=== PATIENT | male | born 1980 | race Two or more races ===

== ENCOUNTER 2020-02-02 20:25 | Emergency (ER) | payer OTHER, SELFPAY ==
[2020-02-02 20:50] VITALS: BP 132/85; PULSE 67; RESP 16; TEMP 36.7; O2SAT 97; BMI 34.3
--- NOTE | 2020-02-02 21:06 | ED.ABDPAIN ---
HPI - Abdominal Pain General Chief Complaint: Abdominal Pain Stated Complaint: abdominal pain Time Seen by Provider: 02/02/20 21:06 Source: patient Mode of arrival: ambulatory Limitations: no limitations History of Present Illness MD elicited complaint: abdominal pain Onset (ago): week(s) (2) Pain Consistency: intermittent Location: epigastric, LUQ and RUQ Quality: fullness and burning Radiation: none Migration to: no migration Exacerbating factors: movement Relieving factors: nothing Treatments prior to arrival: antacids Related Data Previous Rx's Medication Instructions Recorded omeprazole 40 mg PO DAILY 14 Days #14 cap 02/03/20 ondansetron 4 mg PO Q8H PRN #20 tab 02/03/20 sucralfate [Carafate] 1 g PO TID 10 Days #30 tab 02/03/20 Allergies Allergy/AdvReac Type Severity Reaction Status Date / Time No Known Allergies Allergy Unverified 11/30/19 15:42 [No Known Allergies*] Review of Systems Review of Systems Constitutional : No Weight loss, No Fever, No Chills ENT/Mouth : No sore throat, No Rhinorrhea Eyes: No Swelling, No Redness Cardiovascular : No Chest Pain, No SOB, NoEdema Respiratory : No Cough, No Sputum, No Wheezing Gastrointestinal : Positive Nausea, no Vomiting, no Diarrhea, positive abdominal Pain, No Hematochezia, No Melena Genitourinary : No Dysuria, No Urinary Frequency, No Hematuria, No Urgency Musculoskeletal : No joint pain, No Myalgias, No Joint Swelling Skin : No Skin Lesions, No rash Neuro : No Weakness, No Numbness, No Dizziness, No Headache Psych : No Anxiety/Panic, No Depression Heme/Lymph: No Bruising, No Lymphadenopathy Endocrine : No Polyuria, No Polydipsia All other systems reviewed and are negative. Physical Exam Vital Signs: Vital Signs: Last Vital Signs Temp 97.7 F 02/02/20 22:53 Pulse 74 02/02/20 22:53 Resp 18 02/02/20 22:53 BP 121/80 02/02/20 22:53 Pulse Ox 99 02/02/20 22:53 Body Mass Index 34.3 Appearance: Alert. Oriented X3. No acute distress. Eyes: Pupils equal, round and reactive to light. ENT: Pharynx normal. Neck: Normal inspection. Neck supple. CVS: Normal heart rate and rhythm. Pulses normal. Respiratory: No respiratory distress. Breath sounds normal. Abdomen: Soft and mild epigastric pain neg Lockhart's sign Skin: Skin warm and dry. Normal skin color. Normal skin turgor. Extremities: No lower extremity edema. No calf ttp Neuro: Oriented X 3. No motor deficit. No sensory deficit. Course Course Course Narrative: no acute findings at this time, stable for DC, no urinary symptoms, UA negative MDM - Abdominal Pain MDM Narrative Medical decision making narrative: 39 yo male with no PMH comes in with c/o 2 weeks of worsening upper abdominal pain and burning on prilosec with no relief, at this time will need labs, CT scan for mass/duodenitis eval of GB and pancreas, GI cocktail and IV pepcid. Lab Data Result diagrams: 02/02/20 21:35 02/02/20 22:12 Labs: Lab Results 02/02/20 02/02/20 02/02/20 Range/Units 21:35 21:35 21:35 WBC 7.7 (4.8-10.8) X10*3/uL RBC 5.34 (4.60-5.80) X10*6/uL Hgb 16.1 (14.0-18.0) g/dl Hct 45.2 (42-52) % MCV 84.6 (80-98) fL MCH 30.1 (27.0-33.0) pg MCHC 35.6 (31.0-36.0) g/dl RDW 11.6 (11.0-16.0) % Plt Count 270 (160-400) X10*3/uL MPV 8.5 L (9.4-12.4) fL Immature Gran % (Auto) 0.5 H (0.0-0.4) % Neut % (Auto) 38.2 L (45-73) % Lymph % (Auto) 42.0 H (20-40) % [place] % (Auto) 14.8 H (2-11) % Eos % (Auto) 3.8 (0-4) % Baso % (Auto) 0.7 (0-2) % Lymph # (Auto) 3.2 (1.2-4.9) X10*3/uL [place] # (Auto) 1.1 (0.1-1.2) X10*3/uL Eos # (Auto) 0.3 (0.0-0.4) X10*3/uL Baso # (Auto) 0.1 (0.0-0.2) X10*3/uL Abs Immat Gran (auto) 0.04 H (0.00-0.03) X10*3/uL Absolute Neuts (auto) 2.9 (2.0-8.3) X10*3/uL Absolute Nucleated RBC 0.000 (0.0-0.012) X10*3/uL Nucleated RBC % (auto) 0.0 (0.0-0.2) /100WBC Hold Blue Top SEE NOTE Sodium Cancelled Potassium Cancelled Chloride Cancelled Carbon Dioxide Cancelled Anion Gap Cancelled BUN Cancelled Creatinine Cancelled Estim Creat Clear Calc Cancelled Estimated GFR Cancelled Random Glucose Cancelled Calcium Cancelled Magnesium Cancelled Total Bilirubin Cancelled Direct Bilirubin Cancelled AST Cancelled ALT Cancelled Alkaline Phosphatase Cancelled Total Protein Cancelled Albumin Cancelled Lipase Cancelled Urine Color Urine Appearance Urine pH (5.0-8.0) Ur Specific [place] (1.005-1.025) Urine Protein (NEG-TRACE) MG/DL Urine Glucose (UA) (NEG) MG/DL Urine Ketones (NEG) MG/DL Urine Blood (NEG) Urine Nitrite (NEG) Ur Leukocyte Esterase (NEG) Urine RBC (0) /HPF Urine WBC (0-4) /HPF Ur Squamous Epith Cells /LPF Urine Bacteria /LPF 02/02/20 02/03/20 Range/Units 22:12 00:33 WBC (4.8-10.8) X10*3/uL RBC (4.60-5.80) X10*6/uL Hgb (14.0-18.0) g/dl Hct (42-52) % MCV (80-98) fL MCH (27.0-33.0) pg MCHC (31.0-36.0) g/dl RDW (11.0-16.0) % Plt Count (160-400) X10*3/uL MPV (9.4-12.4) fL Immature Gran % (Auto) (0.0-0.4) % Neut % (Auto) (45-73) % Lymph % (Auto) (20-40) % [place] % (Auto) (2-11) % Eos % (Auto) (0-4) % Baso % (Auto) (0-2) % Lymph # (Auto) (1.2-4.9) X10*3/uL [place] # (Auto) (0.1-1.2) X10*3/uL Eos # (Auto) (0.0-0.4) X10*3/uL Baso # (Auto) (0.0-0.2) X10*3/uL Abs Immat Gran (auto) (0.00-0.03) X10*3/uL Absolute Neuts (auto) (2.0-8.3) X10*3/uL Absolute Nucleated RBC (0.0-0.012) X10*3/uL Nucleated RBC % (auto) (0.0-0.2) /100WBC Hold Blue Top Sodium 138 Potassium 3.8 Chloride 105 Carbon Dioxide 25 Anion Gap 12 BUN 14 Creatinine 1.02 Estim Creat Clear Calc 96.7 Estimated GFR > 60 Random Glucose 94 Calcium 8.5 Magnesium 2.0 Total Bilirubin 0.6 Direct Bilirubin 0.2 AST 23 ALT 53 H Alkaline Phosphatase 96 Total Protein 6.9 Albumin 4.3 Lipase 44 Urine Color YELLOW Urine Appearance CLEAR Urine pH 7.5 (5.0-8.0) Ur Specific [place] 1.010 (1.005-1.025) Urine Protein NEG (NEG-TRACE) MG/DL Urine Glucose (UA) NEG (NEG) MG/DL Urine Ketones NEG (NEG) MG/DL Urine Blood TRACE (NEG) Urine Nitrite NEG (NEG) Ur Leukocyte Esterase NEG (NEG) Urine RBC 1-4 (0) /HPF Urine WBC 1-4 (0-4) /HPF Ur Squamous Epith Cells TRACE /LPF Urine Bacteria TRACE /LPF Discharge Plan Discharge Clinical Impression: Gastritis Qualifiers: Gastritis type: unspecified gastritis Chronicity: acute Gastritis bleeding: without bleeding Qualified Code(s): K29.00 - Acute gastritis without bleeding Patient Disposition: Home, Self-Care Instructions: Gastritis (ED) Additional Instructions: return to ED for any worsening symptoms or concerns Prescriptions: New ondansetron 4 mg tablet,disintegrating 4 mg PO Q8H PRN (Reason: nausea and vomiting) Qty: 20 RF: 0 omeprazole 40 mg capsule,delayed release(DR/EC) 40 mg PO DAILY 14 Days Qty: 14 RF: 0 sucralfate [Carafate] 1 gram tablet 1 g PO TID 10 Days Qty: 30 RF: 0 Referrals: Carlos Polk MD [Primary Care Provider] - 3 days (if not better) Stand Alone Forms: Work/School Release [facility] Past Medical History Attestation statement: The following information was validated with the patient. Medical History No known health problems Social History Social History (Updated 02/02/20 @ 21:22 by Catina Hylton DO) Alcohol intake: never Smoking Status: Never smoker Use of substances other than those prescribed or required for medical reasons: No Advance Directives: No Advance Directives Information Provided: Yes
--- NOTE | 2020-02-02 21:09 | CT_ITS ---
EXAMINATION: CT ABDOMEN AND PELVIS WITH CONTRAST CLINICAL INFORMATION: Epigastric pain COMPARISON: 06/26/2006 TECHNIQUE: Multidetector volumetric images were obtained from the superior aspect of the liver through the pubic symphysis following administration 85 mL of Omnipaque 350 intravenous contrast. Sagittal and coronal reformatted images were obtained on the technologist's workstation. Oral contrast: No This CT examination was performed using dose optimization techniques as appropriate, variously including the following: *Automated exposure control *Adjustment of mA and/or kV according to patient size (this includes techniques or standardized protocols for targeted exams where dose is matched to indication/reason for exam; i.e. extremities or head) *Use of iterative reconstruction technique DLP: 662 mGy-cm FINDINGS: LUNG BASES: 4 mm nodule at right lung base. LIVER, GALLBLADDER, AND BILIARY TREE: The liver is normal in size, shape, and attenuation. No focal hepatic lesion or biliary ductal dilatation is present. The gallbladder is unremarkable with no evidence of radiopaque gallstones, gallbladder wall thickening, or obvious pericholecystic inflammatory changes. PANCREAS: Unremarkable. SPLEEN: Unremarkable. ADRENAL GLANDS: Unremarkable. KIDNEYS AND URETERS: Nonobstructing small bilateral renal calculi BLADDER: Mildly thick-walled bladder GASTROINTESTINAL TRACT: The small and large bowel are unremarkable. The appendix is unremarkable. ABDOMINAL WALL: No significant hernia is appreciated. LYMPH NODES: Normal. VASCULAR: Unremarkable. PELVIC VISCERA: Unremarkable. OSSEOUS STRUCTURES: Unremarkable. CT/CT abdomen pelvis w con IMPRESSION: The bowel pattern is nonobstructing. No suspicious fluid collection. Mildly thick-walled bladder may be hypertrophy. Cystitis cannot be excluded. Nonobstructing renal calculi noted
[2020-02-02] MEDS: Magnesium Hydrox/Alum Hydrox 30 ML ORAL.SUSP PO (21:36)
[2020-02-02] MEDS: Lidocaine HCl Viscous 2 % 15 ML SOLUTION MUCOUS MEM (21:36)
[2020-02-02] MEDS: 0.9 % Sodium Chloride 1,000 ML 999 ML IVCONT (21:36)
[2020-02-02] MEDS: Famotidine/PF 20 MG/2 ML VIAL IVPUSH (21:36)
[2020-02-02 21:41] LABS: MANUAL DIFF FLAG NO
[2020-02-02 21:43] LABS: Basophils Absolute Auto 0.1 X10*3/uL (0.0-0.2); Basophils Percent Auto 0.7 % (0-2); Eosinophils Absolute Auto 0.3 X10*3/uL (0.0-0.4); Eosinophils Percent Auto 3.8 % (0-4); Hematocrit 45.2 % (42-52); Hemoglobin 16.1 g/dl (14.0-18.0); Imm Gran Abs Auto 0.04 X10*3/uL (0.00-0.03); Imm Gran Pct Auto 0.5 % (0.0-0.4); Lymphocytes Absolute Auto 3.2 X10*3/uL (1.2-4.9); Mean Corpuscular HGB Conc 35.6 g/dl (31.0-36.0); Mean Corpuscular Hemoglobin 30.1 pg (27.0-33.0); Mean Corpuscular Volume 84.6 fL (80-98); Mean Platelet Volume 8.5 fL (9.4-12.4); Monocytes Absolute Auto 1.1 X10*3/uL (0.1-1.2); Monocytes Percent Auto 14.8 % (2-11); Neutrophils Absolute Auto 2.9 X10*3/uL (2.0-8.3); Neutrophils Percent Auto 38.2 % (45-73); Platelet Count 270 X10*3/uL (160-400); Red Blood Count 5.34 X10*6/uL (4.60-5.80); Red Cell Distribution Width 11.6 % (11.0-16.0); White Blood Count 7.7 X10*3/uL (4.8-10.8)
[2020-02-02 22:38] LABS: Alanine Aminotransferase 53 U/L (0-40); Albumin Level 4.3 g/dL (3.5-5.0); Alkaline Phosphatase 96 U/L (39-117); Anion Gap 12 (12-20); Aspartate Amino Transferase 23 U/L (5-37); Bilirubin Direct 0.2 mg/dL (0.0-0.5); Bilirubin Total 0.6 mg/dL (0.0-1.0); Blood Urea Nitrogen 14 mg/dL (9-16); Calcium 8.5 mg/dL (8.4-10.2); Carbon Dioxide 25 mmol/L (22-29); Chloride 105 mmol/L (96-108); Creatinine Clr Calc Pharmacy 96.7; Estimated Glomerular Filt Rate > 60; Glucose Random 94 mg/dL (60-115); Lipase 44 U/L (8-78); Potassium 3.8 mmol/l (3.3-5.1); Sodium 138 mmol/L (135-145); Total Protein 6.9 g/dL (6.5-8.0)
[2020-02-02 22:53] VITALS: BP 121/80; PULSE 74; RESP 18; TEMP 36.5; O2SAT 99
[2020-02-02] MEDS: iohexoL 350 MG/ML 100 ML INFUS..BTL 85 ML IV (23:56)
[2020-02-03] VITALS: BP 114/70; PULSE 70; RESP 18; TEMP 36.7; O2SAT 99
[2020-02-03 00:38] LABS: Glucose Urine UA NEG (NEG); Leukocyte Esterase Urine NEG (NEG); Nitrite Urine NEG (NEG); PH 7.5 (5.0-8.0); Urine Blood TRACE (NEG); Urine Ketones NEG (NEG); Urine Protein NEG (NEG-TRACE)
[2020-02-03 00:40] LABS: Appearance Urine CLEAR; Color Urine YELLOW
[2020-02-03 00:50] LABS: Bacteria Urine TRACE /LPF; Squamous Epithelial Cell Urine TRACE /LPF
== END 2020-02-03 01:35 | disposition home or self-care (01) ==
PROVIDERS: Emergency Provider Emergency Medicine; PCP Internal Medicine
DX: K29.00 Acute gastritis without bleeding (principal); R10.12 Left upper quadrant pain; R10.11 Right upper quadrant pain; Z79.899 Other long term (current) drug therapy
CPT/HCPCS: 36415; 74177; 80048; 80076; 81001; 83690; 83735; 85025; 96361; 96374; 99284; Q9967

== ENCOUNTER → 2020-02-20 09:09 | Outpatient (BNVA) | payer OTHER, SELFPAY | PROVIDERS: PCP Internal Medicine; Referring Provider Internal Medicine; Visit Provider Internal Medicine Gastroenterology | DX: Z76.89 Persons encountering health services in other specified circumstances (principal) ==

== ENCOUNTER 2020-07-27 10:37 | Outpatient (REF) | payer OTHER, SELFPAY ==
[2020-07-27 11:07] LABS: MANUAL DIFF FLAG NO
[2020-07-27 11:17] LABS: Basophils Percent Auto 0.4 % (0-2); Eosinophils Absolute Auto 0.3 X10*3/uL (0.0-0.4); Eosinophils Percent Auto 3.4 % (0-4); Hematocrit 45.7 % (42-52); Hemoglobin 15.8 g/dl (14.0-18.0); Imm Gran Abs Auto 0.09 X10*3/uL (0.00-0.03); Imm Gran Pct Auto 1.1 % (0.0-0.4); Lymphocytes Percent Auto 36.1 % (20-40); Mean Corpuscular HGB Conc 34.6 g/dl (31.0-36.0); Mean Corpuscular Hemoglobin 29.8 pg (27.0-33.0); Mean Corpuscular Volume 86.1 fL (80-98); Mean Platelet Volume 8.9 fL (9.4-12.4); Monocytes Absolute Auto 0.8 X10*3/uL (0.1-1.2); Monocytes Percent Auto 10.2 % (2-11); Neutrophils Percent Auto 48.8 % (45-73); Platelet Count 271 X10*3/uL (160-400); Red Blood Count 5.31 X10*6/uL (4.60-5.80); Red Cell Distribution Width 11.6 % (11.0-16.0); White Blood Count 8.2 X10*3/uL (4.8-10.8)
[2020-07-27 11:32] LABS: Alanine Aminotransferase 41 U/L (0-40); Albumin Level 4.4 g/dL (3.5-5.0); Alkaline Phosphatase 94 U/L (39-117); Anion Gap 12 (12-20); Aspartate Amino Transferase 21 U/L (5-37); Bilirubin Total 0.8 mg/dL (0.0-1.0); Blood Urea Nitrogen 14 mg/dL (9-16); Calcium 9.2 mg/dL (8.4-10.2); Carbon Dioxide 26 mmol/L (22-29); Chloride 106 mmol/L (96-108); Cholesterol 145 mg/dL; Estimated Glomerular Filt Rate > 60; Glucose Fasting 77 mg/dL (60-99); HDL Cholesterol 40 mg/dL; LDL Cholesterol Calculated 73 mg/dl; Potassium 4.7 mmol/L (3.3-5.1); Sodium 139 mmol/L (135-145); Triglycerides 164 mg/dL
[2020-07-27 11:39] LABS: Glucose Urine UA NEG (NEG); Leukocyte Esterase Urine NEG (NEG); Nitrite Urine NEG (NEG); PH 5.5 (5.0-8.0); Specific Gravity - Urine 1.025 (1.005-1.025); Urine Blood 1+ (NEG); Urine Ketones NEG (NEG); Urine Protein NEG (NEG-TRACE)
[2020-07-27 11:40] LABS: Appearance Urine CLEAR; Color Urine YELLOW
[2020-07-27 11:53] LABS: Prostate Specific Antigen Scr 0.41 ng/mL (<0.05-4.0); TSH reflex Free T4 1.17 uIU/mL (0.32-4.0)
[2020-07-27 11:53] LABS: RBC Urine 0-2 /HPF (0); WBC Urine 0-2 /HPF (0-4)
== END 2020-07-27 10:38 | disposition home or self-care (01) ==
LOC: HO.LAB 10:37
PROVIDERS: PCP Internal Medicine; Visit Provider Internal Medicine
DX: Z00.00 Encounter for general adult medical examination without abnormal findings (principal); I10 Essential (primary) hypertension; K21.9 Gastro-esophageal reflux disease without esophagitis; E66.9 Obesity, unspecified; E78.00 Pure hypercholesterolemia, unspecified; Z12.5 Encounter for screening for malignant neoplasm of prostate
CPT/HCPCS: 36415; 80053; 80061; 81001; 84153; 84443; 85025

== ENCOUNTER 2021-09-12 08:21 | Outpatient (REF) | payer OTHER, SELFPAY ==
[2021-09-12 09:31] LABS: Appearance Urine HAZY; Color Urine YELLOW; Glucose Urine UA NEG (NEG); Leukocyte Esterase Urine 3+ (NEG); Nitrite Urine NEG (NEG); Specific Gravity - Urine 1.025 (1.005-1.025); UACC Culture Trigger YES; Urine Blood 3+ (NEG); Urine Ketones NEG (NEG); Urine Protein NEG (NEG-TRACE)
[2021-09-12 09:46] LABS: Bacteria Urine 3+ /LPF
[2021-09-12 09:47] LABS: WBC Urine 30-49 /HPF (0-4)
[2021-09-12 09:48] LABS: RBC Urine 0-2 /HPF (0)
[2021-09-12 09:51] LABS: Oval Fat Bodies Urine NOTED; Squamous Epithelial Cell Urine TRACE /LPF
== END 2021-09-12 08:22 | disposition home or self-care (01) ==
LOC: HO.LAB 08:21
PROVIDERS: PCP Internal Medicine; Visit Provider Internal Medicine
DX: R30.0 Dysuria (principal)
CPT/HCPCS: 81001; 87086; 87088; 87186

== ENCOUNTER 2021-10-07 07:16 | Outpatient (REF) | payer OTHER, SELFPAY ==
--- NOTE | ~2021-10-07 | CT_ITS ---
EXAMINATION: CT ABDOMEN AND PELVIS WITHOUT CONTRAST CLINICAL INFORMATION: Urinary calculus. COMPARISON: 02/02/2020. TECHNIQUE: Multidetector volumetric imaging was performed from the superior aspect of the liver through the pubic symphysis. Sagittal and coronal reformatted images were obtained on the technologist's workstation. This CT examination was performed using dose optimization techniques as appropriate, variously including the following: *Automated exposure control *Adjustment of mA and/or kV according to patient size (this includes techniques or standardized protocols for targeted exams where dose is matched to indication/reason for exam; i.e. extremities or head) *Use of iterative reconstruction technique DLP: 513 mGy-cm FINDINGS: LUNG BASES: The visualized lung bases are unremarkable. No pleural or pericardial effusion. LIVER, GALLBLADDER, AND BILIARY TREE: The liver is normal in size, shape, and attenuation. No focal hepatic lesion or biliary ductal dilatation is present. There is some mild fatty sparing seen about the region of the gallbladder. The gallbladder is unremarkable with no evidence of radiopaque gallstones, gallbladder wall thickening, or obvious pericholecystic inflammatory changes. PANCREAS: Unremarkable. SPLEEN: Unremarkable. ADRENAL GLANDS: Unremarkable. KIDNEYS AND URETERS: RIGHT KIDNEY: No hydronephrosis is seen. No abnormal masses are appreciated. No perinephric fat stranding is seen. There is a 2 mm nonobstructing calculus in the region of the mid to upper pole. There is a 7 mm calculus within the lower pole which is nonobstructive and lies approximately 9 cm from the posterior axillary line with Hounsfield unit measurements of greater than 500. Within the lower pole there are 2 adjacent 2 mm calculi which are nonobstructive. Right ureter appears unremarkable. LEFT KIDNEY: No hydronephrosis or suspicious mass is appreciated. There is a 3 mm mid to upper pole nonobstructing calculus present. There is a 4 mm nonobstructing calculus seen about the lower pole. There is a 2 mm nonobstructing midpole calculus. The left ureter appears unremarkable. BLADDER: Decompressed. GASTROINTESTINAL TRACT: No dilated loops of large or small bowel are evident. No free air or free fluid is seen. No pericolonic inflammatory change. The appendix appears unremarkable. ABDOMINAL WALL: No significant hernia is appreciated. LYMPH NODES: There are enlarged inguinal lymph nodes right greater than left. No intra-abdominal lymphadenopathy is appreciated. VASCULAR: Unremarkable. PELVIC VISCERA: Unremarkable. OSSEOUS STRUCTURES: Unremarkable. CT/CT abdomen pelvis wo con IMPRESSION: Bilateral nephrolithiasis without evidence of obstructive uropathy. Fleischner guidelines were followed.
== END 2021-10-07 07:17 | disposition home or self-care (01) ==
LOC: HO.CT 07:16
PROVIDERS: PCP Internal Medicine; Visit Provider Internal Medicine
DX: N20.9 Urinary calculus, unspecified (principal); M54.50 Low back pain, unspecified
CPT/HCPCS: 74176

== ENCOUNTER 2022-03-27 08:04 | Outpatient (REF) | payer OTHER, SELFPAY ==
[2022-03-27 08:15] LABS: MANUAL DIFF FLAG NO
[2022-03-27 08:36] LABS: Basophils Absolute Auto 0.1 X10*3/uL (0.0-0.2); Basophils Percent Auto 0.6 % (0-2); Eosinophils Absolute Auto 0.4 X10*3/uL (0.0-0.4); Eosinophils Percent Auto 4.8 % (0-4); Hematocrit 45.9 % (42.0-52.0); Hemoglobin 16.3 g/dl (14.0-18.0); Imm Gran Abs Auto 0.13 X10*3/uL (0.00-0.03); Imm Gran Pct Auto 1.7 % (0.0-0.4); Lymphocytes Absolute Auto 2.7 X10*3/uL (1.2-4.9); Lymphocytes Percent Auto 34.5 % (20-40); Mean Corpuscular HGB Conc 35.5 g/dl (31.0-36.0); Mean Corpuscular Volume 84.5 fL (80.0-98.0); Mean Platelet Volume 8.6 fL (9.4-12.4); Monocytes Absolute Auto 1.1 X10*3/uL (0.1-1.2); Monocytes Percent Auto 14.6 % (2-11); Neutrophils Absolute Auto 3.4 x10*3/uL (2.0-8.3); Neutrophils Percent Auto 43.8 % (45-73); Platelet Count 254 X10*3/uL (160-400); Red Blood Count 5.43 X10*6/uL (4.60-5.80); Red Cell Distribution Width 11.5 % (11.0-16.0); White Blood Count 7.7 X10*3/uL (4.8-10.8)
[2022-03-27 08:38] LABS: Appearance Urine Clear; Color Urine Yellow; Glucose Urine UA Negative (Negative); Leukocyte Esterase Urine Negative (Negative); Nitrite Urine Negative (Negative); PH 5.5 (5.0-9.0); Specific Gravity - Urine 1.025 (1.005-1.025); Urine Blood Negative (Negative); Urine Ketones Negative (Negative); Urine Protein Negative (Neg-Trace)
[2022-03-27 09:11] LABS: Alanine Aminotransferase 76 U/L (0-40); Albumin Level 4.3 g/dL (3.5-5.0); Alkaline Phosphatase 86 U/L (39-117); Anion Gap 13 (12-20); Aspartate Amino Transferase 32 U/L (5-37); Bilirubin Total 0.6 mg/dL (0.0-1.0); Blood Urea Nitrogen 18 mg/dL (9-16); C Reactive Protein 0.18 mg/dL (< or = 0.50); Calcium 9.2 mg/dL (8.4-10.2); Carbon Dioxide 26 mmol/L (22-29); Chloride 105 mmol/L (96-108); Cholesterol 166 mg/dL; Estimated Glomerular Filt Rate > 60; Glucose Fasting 91 mg/dL (60-99); HDL Cholesterol 38 mg/dL; LDL Cholesterol Calculated 91 mg/dl; Potassium 4.7 mmol/L (3.3-5.1); Sodium 139 mmol/L (135-145); Triglycerides 186 mg/dL
[2022-03-27 09:17] LABS: Erythrocyte Sedimentation Rate 2 MM/HR (0-15)
[2022-03-27 09:29] LABS: TSH reflex Free T4 1.48 uIU/mL (0.32-4.0); Vitamin D 25-OH Total 13.6 ng/mL (>30)
== END 2022-03-27 08:05 | disposition home or self-care (01) ==
LOC: HO.LAB 08:04
PROVIDERS: PCP Internal Medicine; Visit Provider Internal Medicine
DX: Z00.00 Encounter for general adult medical examination without abnormal findings (principal); R10.9 Unspecified abdominal pain; M79.7 Fibromyalgia; E78.00 Pure hypercholesterolemia, unspecified; E55.9 Vitamin D deficiency, unspecified; R30.0 Dysuria
CPT/HCPCS: 36415; 80053; 80061; 81003; 82306; 84443; 85025; 85652; 86140

== ENCOUNTER 2022-09-11 08:16 | Outpatient (REF) | payer OTHER, SELFPAY ==
--- NOTE | ~2022-09-11 | US_ITS ---
EXAMINATION: US ABDOMEN COMPLETE CLINICAL INFORMATION: Other specified abnormal findings of blood chemistry. COMPARISON: CT abdomen and pelvis 10/07/2021. TECHNIQUE: Real-time imaging of the abdominal viscera. FINDINGS: PANCREAS: Normal. ABDOMINAL AORTA: The proximal, mid, and distal segments are normal in caliber. INFERIOR VENA CAVA: Visualized portions are normal. LIVER: The liver is normal in size. The liver contour is normal. Increased hepatic echogenicity which can be seen in the setting of hepatic steatosis or underlying liver disease. No focal hepatic lesion. There is no intrahepatic biliary duct dilatation seen. GALLBLADDER: Normal. The gallbladder is physiologically distended without evidence of stones, sludge, polyps, wall thickening or pericholecystic fluid. COMMON BILE DUCT: Obscured by bowel gas. RIGHT KIDNEY: A 1 cm nonobstructing lower pole renal stone. No hydronephrosis or focal parenchymal lesions. The kidney measures 10.7 cm in maximum dimension. LEFT KIDNEY: 4 mm nonobstructing lower pole renal stone. No hydronephrosis or focal parenchymal lesions. The kidney measures 11.6 cm in maximum dimension. SPLEEN: Normal. The spleen measures 11.1 cm in maximum dimension. FREE FLUID: None. US/US abdomen complete IMPRESSION: 1. Bilateral nonobstructing renal stones measuring up to 1 cm on the right and 4 mm on the left. 2. Increased hepatic echogenicity which can be seen in the setting of hepatic steatosis or underlying liver disease. 3. Common bile duct was obscured by bowel gas.
== END 2022-09-11 08:17 | disposition home or self-care (01) ==
LOC: HO.US 08:16
PROVIDERS: PCP Internal Medicine; Visit Provider Internal Medicine
DX: R10.9 Unspecified abdominal pain (principal); R79.89 Other specified abnormal findings of blood chemistry
CPT/HCPCS: 76700

== ENCOUNTER 2023-03-09 15:55 | Outpatient (AMB) | payer OTHER, SELFPAY ==
--- NOTE | 2023-03-09 15:58 | A.OFFPC_ITS ---
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 Accompanied by: Self / Same As Patient Allergies No Known Allergies [No Known Allergies*] Allergy (Verified 12/29/23 13:47) Medication List - Last Reconciled 03/09/23 by Carlos Polk MD cholecalciferol (vitamin D3) 50 mcg PO DAILY 90 days famotidine (Pepcid) 40 mg PO BEDTIME magnesium oxide (Hill) 500 mg PO DAILY omeprazole 40 mg PO DAILY ondansetron 4 mg PO Q8H PRN sennosides (senna) Take 1 to 2 tablets orally at bedtime PRN; 30 days sucralfate (Carafate) 1 g PO TID 10 days Tobacco use date assessed: 03/09/23 Dental Screening Dental Screen Date: 03/09/23 Did you have a dental visit in the last 12 months?: No Did you have a dental problem in the last 6 months where you did not have access to dental care?: No Was dental information given to patient?: No HPI Annual Exam HPI Details Patient comes in today for his annual physical examination States that he has been experiencing a recurrent pain over the top of his right foot since yesterday Relates that the top of his right foot hurts but only when he moves his foot (either flexing or extending) and also when he tries to put some weight bearing on his foot to walk but states that the pain does not occur when his foot is stationary and when he is sitting down Reports that he has not noticed any swelling or external lesion on his foot and does not recall any recent injury or trauma to his foot States that he feels okay otherwise He denies any headaches or dizziness Denies any chest pains, no SOB No nausea/vomiting, no abdominal pain No change in bowel habits noted He denies any acute urinary symptoms He was not able to get his previously ordered follow up labs done yet He had a colonoscopy and EGD done back on 06/12/[address] Lozano for early satiety and rectal bleeding - tests showed (+) mild esophagitis and mild gastric erythema; colonoscopy was essentially normal except for small internal hemorrhoids He was advised repeat colonoscopy in 10 years unless indicated otherwise [facility] Medical History Vitamin D deficiency Hypertriglyceridemia Migraine Constipation Obesity (BMI 30-39.9) Surgical History Hx of endoscopy History of colonoscopy Family History Father History of high blood pressure Mother Family history of high blood pressure Hx of type 1 diabetes mellitus Social History Housing: House Alcohol intake: never Patient Tobacco Use Status: Never used Tobacco e-Cigarette/Vaping Use: Never Used service: No Current occupational status: employed Cognitive needs: No Hearing needs: No Vision needs: No Questionnaire PHQ-9 Over the last 2 weeks, how often have you been bothered by any of the following problems? 1. Little interest or pleasure in doing things: not at all 2. Feeling down, depressed, or hopeless: not at all 3. Trouble falling or staying asleep, or sleeping too much: not at all 4. Feeling tired or having little energy: not at all 5. Poor appetite or overeating: not at all 6. Feeling bad about yourself - or that you are a failure or have let yourself or your family down: not at all 7. Trouble concentrating on things, such as reading the newspaper or watching television: not at all 8. Moving or speaking so slowly that other people could have noticed. Or the opposite - being so fidgety or restless that you have been moving around a lot more than usual: not at all 9. Thoughts that you would be better off or of hurting yourself in some way: not at all Total score: 0 Depression Screening Interpretation: Negative Depression Screening Done: Yes 94100 - PHQ-9 Billing: Yes Source: Developed by Drs. Reuben Arango, Yaritza Dia, Tal Hitchcock and colleagues, with an educational milka from [employer]. Thrive Questionnaire Date Thrive assessed: 03/09/23 I am a: Patient What is your living situation today?: I have a steady place to live Within the past 12 months, did the food you bought not last and you didn't have the money to get more?: Never true Within the past 12 months, did you worry whether your food would run out before you got money to buy more?: Never true Do you have trouble paying for medicines?: No Do you have trouble getting transportation to medical appointments?: No Do you have trouble paying your heating and electricity bill?: No Do you have trouble taking care of your child, family member or friend?: No Do you have trouble with day-to-day activities such as bathing, preparing meals, shopping, managing finances, etc.?: No Are you currently unemployed and looking for a job?: No Are you interested in more education?: No Please select the resources that you would like help with: None Currently or been in a relationship where the following occur: no concerns reported AUDIT C Alcohol Use Questionnaire (AUDIT-C) 1. How often do you have a drink containing alcohol?: Never 2. How many drinks containing alcohol do you have on a typical day when you are drinking?: 1 or 2 (0) 3. How often do you have six or more drinks on one occasion?: Never Total Score: 0 Score Reviewed/Action Taken: Yes MANUEL-7 AMB Questionnaire MANUEL-7 Date MANUEL - 7 assessed: 03/09/23 Feeling nervous, anxious, or on edge: 0 = Not at all Not being able to stop or control worryin = Not at all Worrying too much about different things: 0 = Not at all Trouble relaxin = Not at all Being so restless that it is hard to sit still: 0 = Not at all Becoming easily annoyed or irritable: 0 = Not at all Feeling afraid as if something awful might happen: 0 = Not at all Total MANUEL-7 score (0-4 normal; 5-9 mild; 10-14 moderate; 15-21 severe): 0 Source: Developed by Drs. Reuben Arango, Yaritza Dia, Tal Hitchcock and colleagues, with an educational milka from [employer]. Review of Systems Const Denies chills, Denies fatigue, Denies fever(s), Denies headache(s), Denies malaise and Denies weakness Eyes Denies blurry vision, Denies change in vision, Denies irritation and Denies itchy eyes ENT Denies dysphagia, Denies dizziness, Denies otalgia, Denies headache(s), Denies nasal congestion, Denies neck pain, Denies odynophagia and Denies sore throat Card Denies chest pain, Denies rapid heart rate, Denies irregular heart rhythm, Denies palpitations and Denies dyspnea Resp Denies chest congestion, Denies cough, Denies dyspnea and Denies wheezing GI Denies abdominal pain, Denies bloating, Denies constipation, Denies dysphagia, Denies heartburn, Denies diarrhea, Denies nausea, Denies odynophagia and Denies vomiting Denies hematuria, Denies difficulty urinating, Denies dysuria, Denies urinary frequency and Denies urinary urgency Musc Details: (+) mild pain over the dorsum of the right foot on deep palpation Denies back pain, Denies arthralgias, Denies joint swelling, Denies muscle weakness and Denies neck pain Skin/Breast Denies change in pigmentation, Denies lesions, Denies rash and Denies unusual bruising Neuro Denies dizziness, Denies headache(s), Denies paresthesias and Denies weakness Endo Denies fatigue and Denies palpitations Aller/Immun Denies itchy eyes and Denies wheezing Physical exam (Primary Care) Vital Signs: Last Vital Signs Pulse 78 03/09/23 15:59 BP 122/78 03/09/23 15:59 Pulse Ox 97 03/09/23 15:59 Oxygen Delivery Method Room Air 03/09/23 15:59 BMI result Body Mass Index 35.7 Tobacco/Smoking Status: Tobacco use Status Tobacco use date assessed 03/09/23 03/09/23 16:01 Patient Tobacco Use Status Never used Tobacco 03/09/23 16:01 e-Cigarette/Vaping Use Never Used 03/09/23 16:01 PHQ-9: PHQ-9 Score PHQ-9: Total score 0 03/09/23 17:03 Depression Screening Interpretation: Negative Thrive Assessment: Date of Thrive Assessment Date Thrive assessed 03/09/23 03/09/23 16:01 Currently or been in a relationship where the following occur: no concerns reported Const General: no acute distress, alert and awake Orientation/consciousness: patient oriented x3 HENMT Head: Yes normocephalic and Yes atraumatic Ears: external ears normal, TM's normal bilaterally and EAC's normal General nose exam: No nasal discharge present Face and sinus: Yes normal facial exam and Yes sinuses nontender Teeth and gingiva: dentition normal Throat: Yes posterior oropharynx normal and Yes tonsils normal (no TP congestion) Eyes Eyelids: Yes eyelids normal Conjunctivae: conjunctivae normal Pupils: Equal, round and reactive pupils present EOM: EOMs intact bilaterally Neck Neck: Yes no lymphadenopathy and Yes supple Thyroid: Thyroid normal Resp Auscultation: clear to auscultation bilaterally, no rales and no wheezes Cardio Rate: regular rate Rhythm: regular rhythm Heart sounds: no murmurs GI Palpation (GI): Soft to palpation, nontender and No hepatosplenomegaly present Auscultation: normal bowel sounds General: Yes no CVA tenderness Back/Spine/Pelvis Back: no CVA tenderness Thoracic/Lumbar Spine: thoracic and lumbar spine normal to inspection Skin Lesions: no lesions Rashes: no rashes Neuro General: patient oriented x3, moves all extremities, no focal motor deficits and CN's II-XI intact bilaterally Cranial nerves: Yes Equal, round and reactive pupils present Cognition (Neuro): normal cognition Gait exam (Neuro): Normal gait present Extrem General: Yes no clubbing, cyanosis or edema Right lower extremity: foot Details: tenderness (minimal) Location: of the dorsal foot and no edema Coding Level of Care Code Est Pt Prev Care 40-64y(69528) Diagnoses Annual physical exam Z00.00 Hypertriglyceridemia E78.1 Elevated LFTs R79.89 GERD without esophagitis K21.9 Constipation, unspecified constipation type K59.00 Constipation type: unspecified constipation type Migraine without status migrainosus, not intractable, unspecified migraine type G43.909 Intractability: not intractable Migraine type: unspecified Status migrainosus presence: without status migrainosus Right foot pain M79.671 Vitamin D deficiency E55.9 Obesity (BMI 30-39.9) E66.9
[2023-03-09 15:59] VITALS: BP 122/78; PULSE 78; O2SAT 97; BMI 35.7
== END 2023-03-09 16:58 | disposition home or self-care (01) ==
PROVIDERS: Visit Provider Internal Medicine
DX: Z00.00 Encounter for general adult medical examination without abnormal findings (principal); E78.1 Pure hyperglyceridemia; R79.89 Other specified abnormal findings of blood chemistry; K21.9 Gastro-esophageal reflux disease without esophagitis; K59.00 Constipation, unspecified; G43.909 Migraine, unspecified, not intractable, without status migrainosus; M79.671 Pain in right foot; E55.9 Vitamin D deficiency, unspecified; E66.9 Obesity, unspecified
CPT/HCPCS: 99499

== ENCOUNTER 2023-04-16 08:46 | Outpatient (REF) | payer OTHER, SELFPAY ==
[2023-04-16 09:09] LABS: MANUAL DIFF FLAG NO
[2023-04-16 09:59] LABS: Basophils Absolute Auto 0.1 X10*3/uL (0.0-0.2); Basophils Percent Auto 0.8 % (0-2); Eosinophils Absolute Auto 0.5 X10*3/uL (0.0-0.4); Eosinophils Percent Auto 5.9 % (0-4); Hematocrit 47.9 % (42.0-52.0); Hemoglobin 16.6 g/dl (14.0-18.0); Imm Gran Pct Auto 1.1 % (0.0-0.4); Lymphocytes Percent Auto 33.8 % (20-40); Mean Corpuscular HGB Conc 34.7 g/dl (31.0-36.0); Mean Corpuscular Hemoglobin 29.4 pg (27.0-33.0); Mean Corpuscular Volume 84.9 fL (80.0-98.0); Mean Platelet Volume 8.8 fL (9.4-12.4); Monocytes Absolute Auto 1.1 X10*3/uL (0.1-1.2); Monocytes Percent Auto 12.8 % (2-11); Neutrophils Percent Auto 45.6 % (45-73); Platelet Count 261 X10*3/uL (160-400); Red Blood Count 5.64 X10*6/uL (4.60-5.80); Red Cell Distribution Width 11.8 % (11.0-16.0); White Blood Count 8.8 X10*3/uL (4.8-10.8)
[2023-04-16 10:22] LABS: Appearance Urine Clear; Color Urine Yellow; Glucose Urine UA Negative (Negative); Leukocyte Esterase Urine Negative (Negative); Nitrite Urine Negative (Negative); PH 5.5 (5.0-9.0); Specific Gravity - Urine 1.025 (1.005-1.025); UMIC TRIGGER UACC YES; Urine Blood Trace (Negative); Urine Ketones Negative (Negative); Urine Protein Negative (Neg-Trace)
[2023-04-16 10:54] LABS: Alanine Aminotransferase 58 U/L (0-40); Albumin Level 4.4 g/dL (3.5-5.0); Alkaline Phosphatase 108 U/L (39-117); Anion Gap 14 (12-20); Aspartate Amino Transferase 27 U/L (5-37); Bilirubin Total 0.4 mg/dL (0.0-1.0); Blood Urea Nitrogen 16 mg/dL (9-16); Calcium 9.1 mg/dL (8.4-10.2); Carbon Dioxide 26 mmol/L (22-29); Chloride 105 mmol/L (96-108); Cholesterol 161 mg/dL (<200); Estimated Glomerular Filt Rate > 60; Glucose Fasting 89 mg/dL (60-99); HDL Cholesterol 39 mg/dL (>40); LDL Cholesterol Calculated 79 mg/dL (<100); Potassium 4.6 mmol/L (3.3-5.1); Sodium 140 mmol/L (135-145); Total Protein 7.5 g/dL (6.5-8.0); Triglycerides 215 mg/dL (<150)
[2023-04-16 11:00] LABS: Prostate Specific Antigen Scr 0.34 ng/mL (<0.05-4.0)
[2023-04-16 11:12] LABS: Bacteria Urine None Seen (None Seen); Hyaline Casts Urine 0-2 /LPF (0-2); RBC Urine 0-2 /HPF (0-2); Squamous Epithelial Cell Urine 0-2 /HPF (0-2); WBC Urine 0-5 /HPF (0-5)
[2023-04-16 11:15] LABS: TSH reflex Free T4 1.36 uIU/mL (0.32-4.0); Vitamin D 25-OH Total 17.2 ng/mL (>30)
== END 2023-04-16 08:47 | disposition home or self-care (01) ==
LOC: HO.LAB 08:46
PROVIDERS: PCP Internal Medicine; Visit Provider Internal Medicine
DX: Z00.00 Encounter for general adult medical examination without abnormal findings (principal); Z12.5 Encounter for screening for malignant neoplasm of prostate; R10.9 Unspecified abdominal pain; R79.89 Other specified abnormal findings of blood chemistry; E78.00 Pure hypercholesterolemia, unspecified; E66.9 Obesity, unspecified; E55.9 Vitamin D deficiency, unspecified
CPT/HCPCS: 36415; 80053; 80061; 81001; 82306; 84153; 84443; 85025

== ENCOUNTER → 2023-12-01 10:50 | Outpatient (BNVA) | payer OTHER, SELFPAY | PROVIDERS: PCP Internal Medicine; Visit Provider Physician Assistant | DX: R10.11 Right upper quadrant pain (principal) | CPT/HCPCS: 99204 ==

== ENCOUNTER → 2023-12-06 10:54 | Outpatient (BNVA) | payer OTHER, SELFPAY | PROVIDERS: PCP Internal Medicine; Visit Provider Physician Assistant Medical | DX: R10.11 Right upper quadrant pain (principal) | CPT/HCPCS: 99213 ==

== ENCOUNTER 2023-12-17 15:24 | Outpatient (REF) | payer OTHER, SELFPAY ==
--- NOTE | ~2023-12-17 | CT_ITS ---
EXAMINATION: CT ABDOMEN WITH CONTRAST CLINICAL INFORMATION: Right upper quadrant pain with palpable ventral defect COMPARISON: 10/07/2021 TECHNIQUE: Contiguous axial thin section helical images of the abdomen were performed following the administration of oral contrast and 85 mL of Omnipaque 350 intravenous contrast. The data set was reformatted in the coronal and sagittal planes and reviewed on an independent workstation. This CT examination was performed using dose optimization techniques as appropriate, variously including the following: *Automated exposure control *Adjustment of mA and/or kV according to patient size (this includes techniques or standardized protocols for targeted exams where dose is matched to indication/reason for exam; i.e. extremities or head) *Use of iterative reconstruction technique DLP: 342 mGy-cm FINDINGS: LUNG BASES: Normal. LIVER, GALLBLADDER, AND BILIARY TREE: Mild diffuse fatty infiltration. No liver lesion. No intrahepatic or extrahepatic biliary ductal dilatation. The gallbladder appears normal. PANCREAS: Normal. SPLEEN: Normal. ADRENAL GLANDS AND KIDNEYS: Normal adrenal glands. There are 3-4 mm nonobstructing calculi in the lower pole of the right and left kidney and additional punctate calculi in the lower pole of the right kidney and midpole of the left kidney. No hydronephrosis. Nephrograms are symmetric. There is a subcentimeter round hypointensity in the lower pole of the right kidney laterally on series 4, image 327 which is too small to characterize although is unchanged since at least 02/02/2020. BOWEL LOOPS: Visualized small and large bowel loops are unremarkable. LYMPH NODES: Normal. VASCULAR: Unremarkable. BONES: No acute abnormality. No ventral hernia, mass, or fluid collection to account for a clinically palpable abnormality. CT/CT abdomen w IV con IMPRESSION: 1. No ventral hernia, mass, or fluid collection to account for a clinically palpable abnormality. 2. Mild fatty infiltration of the liver. 3. Bilateral nephrolithiasis. Fleischner guidelines were followed. Electronically signed by: Erick Christie MD 12/18/2023 09:56 AM EDT
[2023-12-17] MEDS: iohexoL 350 MG/ML 100 ML INFUS..BTL 85 ML IV (17:27)
== END 2023-12-17 15:25 | disposition home or self-care (01) ==
LOC: HO.CT 15:24
PROVIDERS: PCP Internal Medicine; Visit Provider Physician Assistant Medical
DX: R10.11 Right upper quadrant pain (principal)
CPT/HCPCS: 74160; Q9967

== ENCOUNTER → 2023-12-20 11:10 | Outpatient (BNVA) | payer OTHER, SELFPAY | PROVIDERS: PCP Internal Medicine; Visit Provider Physician Assistant Medical | DX: S39.011D Strain of muscle, fascia and tendon of abdomen, subsequent encounter (principal); X50.0XXD Overexertion from strenuous movement or load, subsequent encounter | CPT/HCPCS: 99202; 99213 ==

== ENCOUNTER 2023-12-20 13:54 | Outpatient (AMB) | payer OTHER, SELFPAY ==
--- NOTE | 2023-12-20 13:55 | A.OFFVIS_ITS ---
Vital Signs 12/20/23 14:02 Height 5 ft 4 in Weight 208 lb BMI 35.7 BP 130/81 Blood Pressure Location Rt brachial Position Sitting Pulse 75 Intake Visit Reasons: Abd pain, likely abd wall hernia Intake Note: Patient referred by [facility] for abdominal wall hernia. Patient c/o: pain for the past 3wks. Certified Pharmacy Technician Required: No Accompanied by: Self / Same As Patient Allergies No Known Allergies [No Known Allergies*] Allergy (Verified 12/20/23 14:00) HPI Comments Details: Patient presents for evaluation of abdominal pain. A few weeks ago he was doing strenuous activities as placed in appointment and developed lower abdominal wall discomfort. He was given light duty. Because of persistence of symptoms, he has had CT scan of the abdomen which was essentially within normal limits. No evidence hernia.. He was given a few weeks light duty and presents here for further evaluation In the meantime, patient was currently tolerating his diet. Having regular bowel habits. His abdominal wall symptoms have markedly improved. He would like to return to work with light duty to start. Chart was reviewed and patient evaluate [facility] Medical History Vitamin D deficiency Hypertriglyceridemia Migraine Constipation Obesity (BMI 30-39.9) Surgical History Hx of endoscopy History of colonoscopy Family History Father History of high blood pressure Mother Family history of high blood pressure Hx of type 1 diabetes mellitus Social History Housing: House Alcohol intake: never Patient Tobacco Use Status: Never used Tobacco e-Cigarette/Vaping Use: Never Used service: No Current occupational status: employed Cognitive needs: No Hearing needs: No Vision needs: No Physical Exam Vital Signs: Last Vital Signs Pulse 75 12/20/23 14:02 BP 130/81 12/20/23 14:02 BMI result Body Mass Index 35.7 Const Other: Pleasant fellow in no acute distress GI Other: Patient was examined both supine and standing with Valsalva. Abdomen moderately corpulent, soft, benign. No abdominal tenderness. Bilateral groin exam negative. Genitalia within normal limits. Assessment & Plan Assessment & Plan (1) Right sided abdominal pain: Code(s): R10.9 - Unspecified abdominal pain Category: Surgical Plan Both clinically and by CT scan no evidence of any hernia. Current plan is to have the patient return to work for light duty for 2 weeks and advanced from there. All questions answered. Patient will otherwise follow-up p.r.n.. Coding Level of Care Code New Pt Level 4 (02439) Diagnoses Right sided abdominal pain R10.9
[2023-12-20 14:02] VITALS: BP 130/81; PULSE 75; BMI 35.7
== END 2023-12-20 14:38 | disposition home or self-care (01) ==
PROVIDERS: PCP Internal Medicine; Visit Provider Surgery
DX: R10.9 Unspecified abdominal pain (principal)
CPT/HCPCS: 99204

== ENCOUNTER 2023-12-29 13:06 | Outpatient (AMB) | payer BC, SELFPAY ==
[2023-12-29 13:10] VITALS: BP 110/78; PULSE 80; O2SAT 98; BMI 36.5
--- NOTE | 2023-12-29 13:10 | MHC.PC.OV ---
Vital Signs 12/29/23 13:10 Height 5 ft 4 in Weight 212 lb 6 oz BMI 36.5 BP 110/78 Blood Pressure Location Lt brachial Position Sitting Pulse 80 Pulse Source Pulse Oximeter Pulse Oximetry (%) 98 Oxygen Delivery Method Room Air Intake Visit Reasons: dyslipidemia, hepatosteatosis Network Security Officer Required: No Accompanied by: Self / Same As Patient Allergies No Known Allergies [No Known Allergies*] Allergy (Verified 12/29/23 13:47) Medication List - Last Reconciled 12/29/23 by Carlos Polk MD cholecalciferol (vitamin D3) 50 mcg PO DAILY 90 days famotidine (Pepcid) 40 mg PO BEDTIME magnesium oxide (Hill) 500 mg PO DAILY omeprazole 40 mg PO DAILY ondansetron 4 mg PO Q8H PRN sennosides (senna) Take 1 to 2 tablets orally at bedtime PRN; 30 days sucralfate (Carafate) 1 g PO TID 10 days Tobacco use date assessed: 12/29/23 Dental Screening Dental Screen Date: 12/29/23 Did you have a dental visit in the last 12 months?: No Did you have a dental problem in the last 6 months where you did not have access to dental care?: No Was dental information given to patient?: No HPI dyslipidemia, hepatosteatosis HPI Details Patient comes in today for his follow up visit States that he feels okay He denies any headaches or dizziness Denies any chest pains, no SOB No nausea/vomiting; he was experiencing a recurrent pain over the right side of his abdomen for the past few weeks Thinks that this started when he was at work last month - he was seen at [facility] then and they initially thought that it could be a hernia He ended up getting an abdominal CT done a couple of weeks ago that came out normal with NO hernia seen He was seen by surgery a few days later and was cleared to return to work but to stay on light duty and gradually advance his activity as tolerated States that his right-sided abdominal pain has been slowly improving lately No change in bowel habits noted He would also like to know how he did on his labs done back in April 2023 [facility] Medical History Vitamin D deficiency Hypertriglyceridemia Migraine Constipation Obesity (BMI 30-39.9) Surgical History Hx of endoscopy History of colonoscopy Family History Father History of high blood pressure Mother Family history of high blood pressure Hx of type 1 diabetes mellitus Social History Housing: House Alcohol intake: never Patient Tobacco Use Status: Never used Tobacco e-Cigarette/Vaping Use: Never Used service: No Current occupational status: employed Cognitive needs: No Hearing needs: No Vision needs: No Questionnaire PHQ-9 Over the last 2 weeks, how often have you been bothered by any of the following problems? 1. Little interest or pleasure in doing things: not at all 2. Feeling down, depressed, or hopeless: not at all 3. Trouble falling or staying asleep, or sleeping too much: not at all 4. Feeling tired or having little energy: not at all 5. Poor appetite or overeating: not at all 6. Feeling bad about yourself - or that you are a failure or have let yourself or your family down: not at all 7. Trouble concentrating on things, such as reading the newspaper or watching television: not at all 8. Moving or speaking so slowly that other people could have noticed. Or the opposite - being so fidgety or restless that you have been moving around a lot more than usual: not at all 9. Thoughts that you would be better off or of hurting yourself in some way: not at all Total score: 0 Depression Screening Interpretation: Negative Depression Screening Done: Yes 30198 - PHQ-9 Billing: Yes Source: Developed by Drs. Reuben Arango, Yaritza Dia, Tal Hitchcock and colleagues, with an educational milka from [employer]. Thrive Questionnaire Date Thrive assessed: 12/29/23 I am a: Patient What is your living situation today?: I have a steady place to live Within the past 12 months, did the food you bought not last and you didn't have the money to get more?: Never true Within the past 12 months, did you worry whether your food would run out before you got money to buy more?: Never true Do you have trouble paying for medicines?: No Do you have trouble getting transportation to medical appointments?: No Do you have trouble paying your heating and electricity bill?: No Do you have trouble taking care of your child, family member or friend?: No Do you have trouble with day-to-day activities such as bathing, preparing meals, shopping, managing finances, etc.?: No Are you currently unemployed and looking for a job?: No Are you interested in more education?: No Please select the resources that you would like help with: None Currently or been in a relationship where the following occur: No concerns reported THRIVE Score: 0 AUDIT C Alcohol Use Questionnaire (AUDIT-C) 1. How often do you have a drink containing alcohol?: Never 2. How many drinks containing alcohol do you have on a typical day when you are drinking?: 1 or 2 (0) 3. How often do you have six or more drinks on one occasion?: Never Total Score: 0 Score Reviewed/Action Taken: Yes MANUEL-7 AMB Questionnaire MANUEL-7 Date MANUEL - 7 assessed: 12/29/23 Feeling nervous, anxious, or on edge: 0 = Not at all Not being able to stop or control worryin = Not at all Worrying too much about different things: 0 = Not at all Trouble relaxin = Not at all Being so restless that it is hard to sit still: 0 = Not at all Becoming easily annoyed or irritable: 0 = Not at all Feeling afraid as if something awful might happen: 0 = Not at all Total MANUEL-7 score (0-4 normal; 5-9 mild; 10-14 moderate; 15-21 severe): 0 Source: Developed by Drs. Reuben Arango, Yaritza Dia, Tal Hitchcock and colleagues, with an educational milka from [employer]. Review of Systems Const Denies chills, Denies fatigue, Denies fever(s) and Denies headache(s) ENT Denies dysphagia, Denies dizziness, Denies otalgia, Denies headache(s), Denies neck pain, Denies odynophagia and Denies sore throat Card Denies chest pain, Denies palpitations and Denies dyspnea Resp Denies chest congestion, Denies cough and Denies dyspnea GI Reports abdominal pain (right-sided - improving), Denies constipation, Denies dysphagia, Denies heartburn, Denies diarrhea, Denies nausea, Denies odynophagia and Denies vomiting Denies dysuria, Denies nocturia and Denies urinary frequency Musc Denies back pain and Denies neck pain Skin/Breast Denies rash Neuro Denies dizziness and Denies headache(s) Endo Denies fatigue and Denies palpitations Physical exam (Primary Care) Vital Signs: Last Vital Signs Pulse 80 12/29/23 13:10 BP 110/78 12/29/23 13:10 Pulse Ox 98 12/29/23 13:10 Oxygen Delivery Method Room Air 12/29/23 13:10 BMI result Body Mass Index 36.5 Tobacco/Smoking Status: Tobacco use Status Tobacco use date assessed 12/29/23 12/29/23 13:13 Patient Tobacco Use Status Never used Tobacco 12/29/23 13:13 e-Cigarette/Vaping Use Never Used 12/29/23 13:13 PHQ-9: PHQ-9 Score PHQ-9: Total score 0 12/29/23 13:51 Depression Screening Interpretation: Negative Thrive Assessment: Date of Thrive Assessment Date Thrive assessed 12/29/23 12/29/23 13:13 Currently or been in a relationship where the following occur: No concerns reported Const General: no acute distress and alert HENMT Ears: TM's normal bilaterally and EAC's normal Throat: Yes posterior oropharynx normal and Yes tonsils normal (no TP congestion) Neck Neck: Yes no lymphadenopathy and Yes supple Thyroid: Thyroid normal Resp Auscultation: clear to auscultation bilaterally, no rales and no wheezes Cardio Rate: regular rate Rhythm: regular rhythm Heart sounds: no murmurs GI Palpation (GI): Soft to palpation, nontender, no hernias and no masses Auscultation: normal bowel sounds General: Yes no CVA tenderness Back/Spine/Pelvis Back: no CVA tenderness Thoracic/Lumbar Spine: No lumbar spinal tenderness Skin Rashes: no rashes Extrem General: Yes no clubbing, cyanosis or edema Office Procedures Flu Questionnaire Does the patient have a severe egg allergy?: No Immunizations Fluarix Triv [id number] (PF) 45 mcg (15 mcg x 3)/0.5 mL IM syringe Performing Provider: Carlos Polk MD [place] [facility] Documented (not given) by: RONALDO Jeffers on 12/29/23 13:16 Reason Not Given: Patient Refused Results Reviewed Results Reviewed: Laboratory Tests 04/16/23 04/16/23 09:02 09:07 WBC 8.8 Hgb 16.6 Hct 47.9 Plt Count 261 Sodium 140 Potassium 4.6 Creatinine 1.04 Estimated GFR > 60 Fasting Glucose 89 Calcium 9.1 AST 27 ALT 58 H Triglycerides 215 H Cholesterol 161 LDL Cholesterol, Calc 79 HDL Cholesterol 39 L PSA Screen 0.34 25-OH Vitamin D Total 17.2 L TSH 1.36 Ur Specific [place] 1.025 Urine Protein Negative Urine Glucose (UA) Negative Urine Blood Trace H Urine Nitrite Negative Ur Leukocyte Esterase Negative Coding Level of Care Code Est Pt Level 4 (15537) Diagnoses Right sided abdominal pain R10.9 Hypertriglyceridemia E78.1 Elevated LFTs R79.89 GERD without esophagitis K21.9 Constipation, unspecified constipation type K59.00 Constipation type: unspecified constipation type Migraine without status migrainosus, not intractable, unspecified migraine type G43.909 Migraine type: unspecified Status migrainosus presence: without status migrainosus Intractability: not intractable Vitamin D deficiency E55.9 Obesity (BMI 30-39.9) E66.9 Assessment & Plan Assessment & Plan (1) Right sided abdominal pain: Code(s): R10.9 - Unspecified abdominal pain Category: Surgical Plan: Resolving - was most likely due to abdominal muscle strain Abdominal CT done a couple of weeks ago revealed NO ventral hernia, mass, or fluid collection to account for a clinically palpable abnormality. There is mild fatty infiltration of the liver seen as well as bilateral nephrolithiasis He has been cleared to return to light duty by surgery last week and to gradually advance his activity level as tolerated (2) Hypertriglyceridemia: Code(s): E78.1 - Pure hyperglyceridemia Category: Medical Plan: Results of his labs done back in April 2023 reviewed and discussed with patient - his serum TG level was still slightly high but had improved slightly from previous Reinforced low cholesterol diet Will recheck his fasting lipids and labs in 6 months for follow up (3) Elevated LFTs: Code(s): R79.89 - Other specified abnormal findings of blood chemistry Category: Medical Plan: His serum ALT was still slightly elevated on his labs done back in April 2023 but it has decreased slightly from previous; serum AST was normal This is again most likely related to his weight; patient states that he does not drink alcohol Have advised him that losing weight should help get his LFTs back to normal Will recheck his LFTs in 6 months for follow up (4) GERD without esophagitis: Code(s): K21.9 - Gastro-esophageal reflux disease without esophagitis Category: Medical Plan: Dietary restrictions reinforced Continue Omeprazole 40 mg QD and Famotidine 40 mg Q HS (5) Constipation: Code(s): K59.00 - Constipation, unspecified Category: Medical Qualifiers: Constipation type: unspecified constipation type Qualified Code(s): K59.00 - Constipation, unspecified Plan: Reinforced again increased oral fluids and dietary fiber Continue Senna 8.6 mg 1 to 2 tablets Q HS PRN (6) Migraine: Code(s): G43.909 - Migraine, unspecified, not intractable, without status migrainosus Category: Medical Qualifiers: Migraine type: unspecified Status migrainosus presence: without status migrainosus Intractability: not intractable Qualified Code(s): G43.909 - Migraine, unspecified, not intractable, without status migrainosus Plan: Stable lately (7) Vitamin D deficiency: Code(s): E55.9 - Vitamin D deficiency, unspecified Category: Medical Plan: Continue Vitamin D3 2000 units QD Will recheck his Vitamin D level in 6 months for follow up (8) Obesity (BMI 30-39.9): Code(s): E66.9 - Obesity, unspecified Category: Medical Plan: Reinforced diet/exercise as tolerated/lose weight Plan To return in 6 months for his annual physical examination Orders: Orders Complete Blood Count Auto Diff 6 Months D64.9 - Anemia, unspecified Comprehensive [place]. Panel Fast 6 Months E78.00 - Pure hypercholesterolemia, unspecified Influenza [id number] Immunization Today Z23 - Encounter for immunization Lipid Panel 6 Months E78.00 - Pure hypercholesterolemia, unspecified TSH reflex Free T4 6 Months E78.00 - Pure hypercholesterolemia, unspecified UA CC w/rflx Micro + Cult 6 Months R30.0 - Dysuria Vitamin D 25-OH Total 6 Months E55.9 - Vitamin D deficiency, unspecified
== END 2023-12-29 13:55 | disposition home or self-care (01) ==
PROVIDERS: PCP Internal Medicine; Visit Provider Internal Medicine
DX: R10.9 Unspecified abdominal pain (principal); E78.1 Pure hyperglyceridemia; E66.812 Obesity, class 2; Z68.36 Body mass index [BMI] 36.0-36.9, adult; K21.9 Gastro-esophageal reflux disease without esophagitis; K59.00 Constipation, unspecified; G43.909 Migraine, unspecified, not intractable, without status migrainosus; E55.9 Vitamin D deficiency, unspecified

== ENCOUNTER → 2023-12-29 13:06 | Outpatient (BNVA) | payer BC, SELFPAY | PROVIDERS: PCP Internal Medicine; Visit Provider Internal Medicine | DX: R10.9 Unspecified abdominal pain (principal); E78.1 Pure hyperglyceridemia; R79.89 Other specified abnormal findings of blood chemistry; K21.9 Gastro-esophageal reflux disease without esophagitis; K59.00 Constipation, unspecified; G43.909 Migraine, unspecified, not intractable, without status migrainosus; E55.9 Vitamin D deficiency, unspecified; E66.9 Obesity, unspecified; Z68.36 Body mass index [BMI] 36.0-36.9, adult; Z28.21 Immunization not carried out because of patient refusal | CPT/HCPCS: 90471; 96127 ==

== ENCOUNTER 2024-06-09 12:25 | Outpatient (REF) | payer BC, SELFPAY ==
[2024-06-09 12:47] LABS: MANUAL DIFF FLAG NO
[2024-06-09 13:02] LABS: Basophils Absolute Auto 0.1 X10*3/uL (0.0-0.2); Basophils Percent Auto 0.6 % (0-2); Eosinophils Absolute Auto 0.3 X10*3/uL (0.0-0.4); Eosinophils Percent Auto 3.3 % (0-4); Hemoglobin 16.4 g/dl (14.0-18.0); Imm Gran Abs Auto 0.09 X10*3/uL (0.00-0.03); Lymphocytes Absolute Auto 3.1 X10*3/uL (1.2-4.9); Lymphocytes Percent Auto 35.8 % (20-40); Mean Corpuscular HGB Conc 35.7 g/dl (31.0-36.0); Mean Corpuscular Hemoglobin 29.9 pg (27.0-33.0); Mean Corpuscular Volume 83.9 fL (80.0-98.0); Mean Platelet Volume 8.5 fL (9.4-12.4); Monocytes Absolute Auto 0.9 X10*3/uL (0.1-1.2); Monocytes Percent Auto 10.6 % (2-11); Neutrophils Absolute Auto 4.3 x10*3/uL (2.0-8.3); Neutrophils Percent Auto 48.7 % (45-73); Platelet Count 263 X10*3/uL (160-400); Red Blood Count 5.48 X10*6/uL (4.60-5.80); Red Cell Distribution Width 11.9 % (11.0-16.0); White Blood Count 8.8 X10*3/uL (4.8-10.8)
[2024-06-09 13:11] LABS: Appearance Urine Clear; Color Urine Yellow; Glucose Urine UA Negative (Negative); Leukocyte Esterase Urine Negative (Negative); Nitrite Urine Negative (Negative); PH 5.5 (5.0-9.0); Specific Gravity - Urine 1.025 (1.005-1.025); UMIC TRIGGER UACC YES; Urine Blood Trace (Negative); Urine Ketones Negative (Negative); Urine Protein Negative (Neg-Trace)
[2024-06-09 13:16] LABS: Bacteria Urine None Seen (None Seen); Hyaline Casts Urine 0-2 /LPF (0-2); Squamous Epithelial Cell Urine 0-2 /HPF (0-2); WBC Urine 0-5 /HPF (0-5)
[2024-06-09 13:30] LABS: Alanine Aminotransferase 63 U/L (0-40); Albumin Level 4.5 g/dL (3.5-5.0); Alkaline Phosphatase 86 U/L (39-117); Anion Gap 10 (12-20); Aspartate Amino Transferase 31 U/L (5-37); Bilirubin Total 0.7 mg/dL (0.0-1.0); Blood Urea Nitrogen 18 mg/dL (9-16); Calcium 9.2 mg/dL (8.4-10.2); Carbon Dioxide 26 mmol/L (22-29); Chloride 106 mmol/L (96-108); Cholesterol 178 mg/dL (<200); Estimated Glomerular Filt Rate > 60; Glucose Fasting 82 mg/dL (60-99); HDL Cholesterol 54 mg/dL (>40); LDL Cholesterol Calculated 59 mg/dL (<100); Potassium 4.4 mmol/L (3.3-5.1); Sodium 138 mmol/L (135-145); Total Protein 7.4 g/dL (6.5-8.0); Triglycerides 327 mg/dL (<150)
[2024-06-09 13:48] LABS: TSH reflex Free T4 1.15 uIU/mL (0.32-4.0); Vitamin D 25-OH Total 17.1 ng/mL (>30)
== END 2024-06-09 12:26 | disposition home or self-care (01) ==
LOC: HO.LAB 12:25
PROVIDERS: PCP Internal Medicine; Visit Provider Internal Medicine
DX: E78.00 Pure hypercholesterolemia, unspecified (principal); E55.9 Vitamin D deficiency, unspecified; D64.9 Anemia, unspecified
CPT/HCPCS: 36415; 80053; 80061; 81001; 81003; 82306; 84443; 85025

== ENCOUNTER 2024-12-08 15:00 | Outpatient (AMB) | payer BC, SELFPAY ==
--- NOTE | 2024-12-08 15:02 | MHC.PC.OV ---
Vital Signs 12/08/24 15:03 Height 5 ft 4 in Weight 211 lb BMI 36.2 BP 110/80 Blood Pressure Location Lt brachial Position Sitting Pulse 80 Pulse Source Pulse Oximeter Pulse Oximetry (%) 95 Oxygen Delivery Method Room Air Intake Visit Reasons: CPE Senior Clinical Data Manager Required: No Accompanied by: Self / Same As Patient Allergies No Known Allergies (No Known Allergies*) Allergy (Verified 12/08/24 15:32) Medication List - Last Reconciled 12/08/24 by Carlos Polk MD cholecalciferol (vitamin D3) 50 mcg PO DAILY 90 days famotidine (Pepcid) 40 mg PO BEDTIME magnesium oxide (Hill) 500 mg PO DAILY omeprazole 40 mg PO DAILY ondansetron 4 mg PO Q8H PRN sennosides (senna) Take 1 to 2 tablets orally at bedtime PRN; 30 days sucralfate (Carafate) 1 g PO TID 10 days Tobacco use date assessed: 12/08/24 Dental Screening Dental Screen Date: 12/08/24 Did you have a dental visit in the last 12 months?: No Did you have a dental problem in the last 6 months where you did not have access to dental care?: No Was dental information given to patient?: No HPI CPE HPI Details Patient comes in today for his annual physical examination States that he needs to have ears checked as he was getting his medical card for his [employer] license recently and was advised to have his hearing checked - thinks that he has a lot of wax clogging up his ears and feels that his hearing is somewhat impaired He describes his hearing as a feeling like he is inside a tunnel He reports (+) occasional dizziness and headaches Denies any chest pains, no increased SOB No nausea/vomiting but relates (+) on and off abdominal pain/bloating lately States that he has been experiencing increased constipation lately Denies any acute urinary symptoms Needs a couple of his Rx refilled He is also requesting a referral to urology for vasectomy as he does not wish to have any more children accidentally He had his screening colonoscopy done back in 2019 and will be due for repeat colonoscopy in 10 years (2029) [facility] Medical History Vitamin D deficiency Hypertriglyceridemia Migraine Constipation Obesity (BMI 30-39.9) Surgical History Hx of endoscopy History of colonoscopy Family History Father History of high blood pressure Mother Family history of high blood pressure Hx of type 1 diabetes mellitus Social History Housing: House Alcohol intake: never Patient Tobacco Use Status: Never used Tobacco e-Cigarette/Vaping Use: Never Used service: No Current occupational status: employed Cognitive needs: No Hearing needs: No Vision needs: No Questionnaire PHQ-9 Over the last 2 weeks, how often have you been bothered by any of the following problems? 1. Little interest or pleasure in doing things: not at all 2. Feeling down, depressed, or hopeless: not at all 3. Trouble falling or staying asleep, or sleeping too much: not at all 4. Feeling tired or having little energy: not at all 5. Poor appetite or overeating: not at all 6. Feeling bad about yourself - or that you are a failure or have let yourself or your family down: not at all 7. Trouble concentrating on things, such as reading the newspaper or watching television: not at all 8. Moving or speaking so slowly that other people could have noticed. Or the opposite - being so fidgety or restless that you have been moving around a lot more than usual: not at all 9. Thoughts that you would be better off or of hurting yourself in some way: not at all Total score: 0 Depression Screening Interpretation: Negative Depression Screening Done: Yes 98685 - PHQ-9 Billing: Yes Source: Developed by Drs. Reuben Arango, Yaritza Dia, Tal Hitchcock and colleagues, with an educational milka from [employer]. Thrive Questionnaire Date Thrive assessed: 12/08/24 I am a: Patient What is your living situation today?: I have a steady place to live Within the past 12 months, did the food you bought not last and you didn't have the money to get more?: Sometimes True Within the past 12 months, did you worry whether your food would run out before you got money to buy more?: Sometimes True Do you have trouble paying for medicines?: No Do you have trouble getting transportation to medical appointments?: No Do you have trouble paying your heating and electricity bill?: Yes Do you have trouble taking care of your child, family member or friend?: No Do you have trouble with day-to-day activities such as bathing, preparing meals, shopping, managing finances, etc.?: No Are you currently unemployed and looking for a job?: No Are you interested in more education?: I choose not to answer this question Please select the resources that you would like help with: Food Currently or been in a relationship where the following occur: No concerns reported THRIVE Score: 3 AUDIT C Alcohol Use Questionnaire (AUDIT-C) 1. How often do you have a drink containing alcohol?: Never 3. How often do you have six or more drinks on one occasion?: Never Total Score: 0 Score Reviewed/Action Taken: Yes MANUEL-7 AMB Questionnaire MANUEL-7 Date MANUEL - 7 assessed: 12/08/24 Feeling nervous, anxious, or on edge: 0 = Not at all Not being able to stop or control worryin = Not at all Worrying too much about different things: 1 = Several days Trouble relaxin = Not at all Being so restless that it is hard to sit still: 0 = Not at all Becoming easily annoyed or irritable: 0 = Not at all Feeling afraid as if something awful might happen: 0 = Not at all Total MANUEL-7 score (0-4 normal; 5-9 mild; 10-14 moderate; 15-21 severe): 1 Source: Developed by Drs. Reuben Aragno, Yaritza Dia, Tal Hitchcock and colleagues, with an educational milka from [employer]. Review of Systems Const Denies chills, Denies fatigue, Denies fever(s), Reports headache(s) (occasional), Denies malaise and Denies weakness Eyes Denies blurry vision, Denies change in vision, Denies irritation and Denies itchy eyes ENT Denies dysphagia, Reports dizziness (occasional), Denies otalgia, Reports headache(s) (occasional), Reports hearing loss (decreased hearing - see HPI), Denies nasal congestion, Denies neck pain, Denies odynophagia and Denies sore throat Card Denies chest pain, Denies rapid heart rate, Denies irregular heart rhythm, Denies palpitations and Denies dyspnea Resp Denies chest congestion, Denies cough, Denies dyspnea and Denies wheezing GI Denies abdominal pain, Reports bloating, Reports constipation (increased lately), Denies dysphagia, Denies heartburn, Denies diarrhea, Denies nausea, Denies odynophagia and Denies vomiting Denies hematuria, Denies difficulty urinating, Denies dysuria, Denies urinary frequency and Denies urinary urgency Musc Denies back pain, Denies arthralgias, Denies joint swelling, Denies muscle weakness and Denies neck pain Skin/Breast Denies change in pigmentation, Denies lesions, Denies rash and Denies unusual bruising Neuro Reports dizziness (occasional), Reports headache(s) (occasional), Denies paresthesias and Denies weakness Endo Denies fatigue and Denies palpitations Aller/Immun Denies itchy eyes and Denies wheezing Physical exam (Primary Care) Vital Signs: Last Vital Signs Pulse 80 12/08/24 15:03 BP 110/80 12/08/24 15:03 Pulse Ox 95 12/08/24 15:03 Oxygen Delivery Method Room Air 12/08/24 15:03 BMI result Body Mass Index 36.2 Tobacco/Smoking Status: Tobacco use Status Tobacco use date assessed 12/08/24 12/08/24 15:07 Patient Tobacco Use Status Never used Tobacco 12/08/24 15:07 e-Cigarette/Vaping Use Never Used 12/08/24 15:07 PHQ-9: PHQ-9 Score PHQ-9: Total score 0 12/09/24 15:12 Depression Screening Interpretation: Negative Thrive Assessment: Date of Thrive Assessment Date Thrive assessed 12/08/24 12/08/24 15:07 Currently or been in a relationship where the following occur: No concerns reported Const General: no acute distress, alert and awake Orientation/consciousness: patient oriented x3 HENMT Head: Yes normocephalic and Yes atraumatic Ears: external ears normal, Abnormal EAC present cerumen impaction bilateral and unable to visualize TM bilaterally General nose exam: No nasal discharge present Face and sinus: Yes normal facial exam and Yes sinuses nontender Teeth and gingiva: dentition normal Throat: Yes posterior oropharynx normal and Yes tonsils normal (no TP congestion) Eyes Eyelids: Yes eyelids normal Conjunctivae: conjunctivae normal Pupils: Equal, round and reactive pupils present EOM: EOMs intact bilaterally Neck Neck: Yes supple and No lymphadenopathy Thyroid: Thyroid normal Resp Auscultation: clear to auscultation bilaterally, no rales and no wheezes Cardio Rate: regular rate Rhythm: regular rhythm Heart sounds: no murmurs GI Palpation (GI): Soft to palpation, nontender and No hepatosplenomegaly present Auscultation: normal bowel sounds General: Yes no CVA tenderness Back/Spine/Pelvis Back: no CVA tenderness Thoracic/Lumbar Spine: No lumbar spinal tenderness Skin Lesions: no lesions Rashes: no rashes Neuro General: patient oriented x3, moves all extremities, no focal motor deficits and CN's II-XI intact bilaterally Cranial nerves: Yes Equal, round and reactive pupils present Cognition (Neuro): normal cognition Gait exam (Neuro): Normal gait present Extrem General: Yes no clubbing, cyanosis or edema Coding Level of Care Code Est Pt Prev Care 40-64y(83732) Diagnoses Annual physical exam Z00.00 Hypertriglyceridemia E78.1 Elevated LFTs R79.89 GERD without esophagitis K21.9 Constipation, unspecified constipation type K59.00 Constipation type: unspecified constipation type Migraine without status migrainosus, not intractable, unspecified migraine type G43.909 Migraine type: unspecified Status migrainosus presence: without status migrainosus Intractability: not intractable Vitamin D deficiency E55.9 Impacted cerumen of both ears H61.23 Obesity (BMI 30-39.9) E66.9 Sterilization consult Z30.09 Additional Codes PHQ-9 - 10044 - PHQ-9 Billing: Yes ([id number]) Assessment & Plan Assessment & Plan (1) Annual physical exam: Code(s): Z00.00 - Encounter for general adult medical examination without abnormal findings Category: Medical Plan: Check labs to complete his annual exam today He had his screening colonoscopy done back in 2020 and will be due for repeat colonoscopy in 2030 (2) Hypertriglyceridemia: Code(s): E78.1 - Pure hyperglyceridemia Category: Medical Plan: Reinforced low cholesterol diet Will recheck his fasting lipids and labs TIANA for follow up (3) Elevated LFTs: Code(s): R79.89 - Other specified abnormal findings of blood chemistry Category: Medical Plan: His serum ALT was still elevated on his labs done back in May 2024; serum AST was normal This is again most likely related to his weight; patient states that he does not drink alcohol Have advised him that losing weight should help get his LFTs back to normal Will recheck his LFTs TIANA for follow up (4) GERD without esophagitis: Code(s): K21.9 - Gastro-esophageal reflux disease without esophagitis Category: Medical Plan: Dietary restrictions reinforced Continue Omeprazole 40 mg QD and Famotidine 40 mg Q HS (5) Constipation: Code(s): K59.00 - Constipation, unspecified Category: Medical Qualifiers: Constipation type: unspecified constipation type Qualified Code(s): K59.00 - Constipation, unspecified Plan: Reinforced again increased oral fluids and dietary fiber intake Continue Senna 8.6 mg 1 to 2 tablets Q HS PRN (6) Migraine: Code(s): G43.909 - Migraine, unspecified, not intractable, without status migrainosus Category: Medical Qualifiers: Migraine type: unspecified Status migrainosus presence: without status migrainosus Intractability: not intractable Qualified Code(s): G43.909 - Migraine, unspecified, not intractable, without status migrainosus Plan: Stable lately (7) Vitamin D deficiency: Code(s): E55.9 - Vitamin D deficiency, unspecified Category: Medical Plan: Continue Vitamin D3 2000 units QD - Rx refilled (8) Impacted cerumen of both ears: Code(s): H61.23 - Impacted cerumen, bilateral Category: Medical Plan: Have instructed patient to start using OTC Debrox eardrops into both ears BID x 7 to 10 days Have also instructed him on self irrigation of his ears while in the shower daily Will have him return in a couple of weeks to see if his ears have improved by then and if not, will likely require irrigation in the office (9) Obesity (BMI 30-39.9): Code(s): E66.9 - Obesity, unspecified Category: Medical Plan: Reinforced diet/exercise as tolerated/lose weight (10) Sterilization consult: Code(s): Z30.09 - Encounter for other general counseling and advice on contraception Category: Medical Plan: Per request, will refer him to urology for consideration/consultation for vasectomy Plan Follow up in 4 months Orders: Orders Complete Blood Count Auto Diff Today D64.9 - Anemia, unspecified, Z00.00 - Encounter for general adult medical examination without abnormal findings TSH reflex Free T4 Today E78.00 - Pure hypercholesterolemia, unspecified, Z00.00 - Encounter for general adult medical examination without abnormal findings UA CC w/rflx Micro + Cult Today R30.0 - Dysuria, Z00.00 - Encounter for general adult medical examination without abnormal findings Prostate Specific Antigen Scr Today Z00.00 - Encounter for general adult medical examination without abnormal findings XR abdomen 3V Today R10.9 - Unspecified abdominal pain Lipid Panel Today E78.00 - Pure hypercholesterolemia, unspecified, Z00.00 - Encounter for general adult medical examination without abnormal findings Comprehensive [place]ucopia. Panel Fast Today E78.00 - Pure hypercholesterolemia, unspecified, Z00.00 - Encounter for general adult medical examination without abnormal findings Vitamin D 25-OH Total Today E55.9 - Vitamin D deficiency, unspecified, Z00.00 - Encounter for general adult medical examination without abnormal findings Referrals Urology Referral Z30.09 - Encounter for other general counseling and advice on contraception Medications: New carbamide peroxide 6.5% (Debrox) 5 drps otic (ears) BID 15 mL 0RF 10 days Changed From famotidine (Pepcid) 40 mg PO BEDTIME 30 tabs 2RF To famotidine (Pepcid) 40 mg PO BEDTIME 90 tabs 1RF 90 days Refilled cholecalciferol (vitamin D3) 50 mcg PO DAILY 90 caps 3RF 90 days E55.9 - Vitamin D deficiency, unspecified
[2024-12-08 15:03] VITALS: BP 110/80; PULSE 80; O2SAT 95; BMI 36.2
--- OUTSIDE RECORDS SUMMARY | 2024-12-08 15:40 | XMS_ITS | Clinical Summary ---
Author Organization [facility] Address [address] [address] Phone Care Team Providers Care Breakdown Person Name Role Phone Pcp, Unknown Primary Care Provider Unavailabl e Allergies No known active allergies Medications ondansetron (ZOFRAN-ODT) 4 MG disintegrating tablet (To-Go) Take 1-2 tablet(s) by mouth every 8 hours as needed for nausea/vomit ing 6 tablet 2 Active phenazopyridine (PYRIDIUM) 200 MG tablet Take 1 tablet (200 mg total) by mouth 3 (three) times a day as needed for pain (specific location in comments). 10 tablet 2 Active Social History Tobacco Use Types Packs/Day Years Used Date Smoking Tobacco: Never Smokeless Tobacco: Never Alcohol Use Standard Drinks/Week Comments Not Currently 0 (1 standard drink = 0.6 oz pur e alcohol) Education Answer Date Recorded Are you interested in more education? Not on adria e 07/11/2022 Are you concerned about learning? Not on file 07/11/2022 No 07/11/2022 No 07/11/2022 Digital Access Answer Date Recorded No 08/11/2022 No 08/11/2022 Reliable internet access at home? Not on file 08/11/2022 Device with a working camera? Not on file Sex and Gender Information Value Date Recorded Sex Assigned at Male 07/27/2021 7:55 PM EDT Legal Sex Male 12:47 PM EDT Gender Identity Male 07/27/2021 7:55 PM EDT Sexual Orientation Straight 07/27/2021 7: 55 PM EDT Last Filed Vital Signs Vital Sign Reading Time Taken Comments Blood Pressure 132/85 08/20/2021 8:30 PM EDT Pulse 91 08/20/2021 8:30 PM EDT Temperature 37.2 C (99 F) 08/20/2021 8:30 PM EDT Respiratory Rate 18 08/20/2021 8:30 PM EDT Oxygen Saturation 98% 08/20/2021 8:30 PM EDT Inhaled Oxygen Concentration - - Weight 86.2 kg (190 lb) 08/20/2021 6:54 PM EDT Height 162.6 cm (5' 4 ) 08/20/2021 6:54 PM EDT Body Mass Index 32.61 08/20/2021 6:54 PM EDT Plan of Treatment Health Maintenance Due Date Last Done Comments Adult Td,Tdap Booster 1978 LIPID PANEL 1978 DEPRESSION SCREENING 1990 HEPATITIS C SCREENING 1996 HIV ONE-TIME SCREENING (18-6 5 YEARS) 1996 COLOGUARD 11/29/2023 COLONOSCOPY 11/29/2023 COLORECTAL CANCER SCREENING 11/29/2023 FIT TEST 11/29/2023 FOBT 11/29/2023 SIGMOIDOSCOPY 11/29/2023 VIRTUAL COLONOSCOPY 11/29/2023 INFLUENZA VACCINE (#1) 2024 COVID-19 VACCINE ( - 2023-2 5 season) 2024 SMOKING STATUS SCREENING (On ce After 26 Yrs) Completed 07/27/2021 HEPATITIS A VACCINES Aged Out No long er eligible based on patient's age to complete this topic HIB VACCINES Aged Out No longer eligi ble based on patient's age to complete this topic MENINGOCOCCAL VACCINES (ACWY) Aged Out No longer eligible based on patient's age to complete this topic MENINGOCOCCAL VACCINES (B) Aged Out N o longer eligible based on patient's age to complete this topic PNEUMOCOCCAL VACCINES (0-49 years) Aged Out No longer eligible based on patient's age to complete this topic Medical Devices Not on file [place] [address] [place] [address] [employer] BENEFITS ADMINISTRAT[employer] Member Subscriber Plan / Payer (Ef fective 2015-Present) Name:Alexey Dumont Relation to Subscriber:Self Name:Alexey Dumont Payer ID:[id number] (NAIC) Type:PPO Address: [address] [employer] Member Subscriber Plan / Payer (Ef fective 2015-Present) Name:Alexey Dumont Relation to Subscriber:Self Name:Alexey Dumont Payer ID:[id number] (NAIC) Type:PPO Address: [place] [id number] [employer] Member Subscriber Plan / Payer (Ef fective 2015-Present) Name:Alexey Dumont Relation to Subscriber:Self Name:Alexey Dumont Payer ID:[id number] (NAIC) Type:PPO Address: [place] [phone] [employer] Care Teams Breakdown Person Relationship Specialty Start Date End Date Pcp, Unknown PCP - General 08/20/21 Additional Source Comments The information contained in this document represents components of the legal health record. It is not the complete legal health record.[facility]
== END 2024-12-08 15:45 | disposition home or self-care (01) ==
LOC: HO.HMCH 15:01
PROVIDERS: PCP Internal Medicine; Visit Provider Internal Medicine
DX: Z00.00 Encounter for general adult medical examination without abnormal findings (principal); E78.1 Pure hyperglyceridemia; R79.89 Other specified abnormal findings of blood chemistry; K21.9 Gastro-esophageal reflux disease without esophagitis; K59.00 Constipation, unspecified; G43.909 Migraine, unspecified, not intractable, without status migrainosus; E55.9 Vitamin D deficiency, unspecified; H61.23 Impacted cerumen, bilateral; E66.9 Obesity, unspecified; Z30.09 Encounter for other general counseling and advice on contraception

== ENCOUNTER → 2024-12-08 15:00 | Outpatient (BNVA) | payer BC, SELFPAY | PROVIDERS: PCP Internal Medicine; Visit Provider Internal Medicine | DX: H61.23 Impacted cerumen, bilateral (principal) | CPT/HCPCS: 69209; 96127 ==

== ENCOUNTER 2024-12-09 08:29 | Outpatient (REF) | payer BC, SELFPAY ==
--- NOTE | ~2024-12-09 | XR_ITS ---
EXAMINATION: XR ABDOMEN 3 VIEWS HISTORY: R10.9 - Unspecified abdominal pain COMPARISON: Correlation is made with a CT of the abdomen dated 12/17/2023. FINDINGS: Three supine views of the abdomen are submitted. The bowel gas pattern is unremarkable, without evidence of mechanical obstruction. There is a 4 mm calcification overlying the lower pole of the right renal shadow and a 3 mm calcification overlying the lower pole of the left renal shadow. There are no abnormal soft tissue masses. There is mild narrowing of the left hip joint. XR/XR abdomen 3V IMPRESSION: Unremarkable bowel gas pattern. Bilateral nephrolithiasis as described. Electronically signed by: Reuben Miranda MD 12/11/2024 07:44 AM EDT
--- OUTSIDE RECORDS SUMMARY | 2024-12-09 08:37 | XMS_ITS | Clinical Summary ---
Author Organization [facility] Address [address] [address] Phone Care Team Providers Care Sql Analyst Name Role Phone Pcp, Unknown Primary Care [...] topic Medical Devices Not on [place] [address] [place] [address] [email or web address] BENEFITS ADMINISTRAT[employer] Member Subscriber Plan / Payer (Ef fective 2015-Present) Name:Alexey Dumont Relation to Subscriber:Self Name:Alexey Dumont Payer ID:[id number] (NAIC) Type:PPO Address: [address] [employer] Member Subscriber Plan / Payer (Ef fective 2015-Present) Name:Alexey Dumont Relation to Subscriber:Self Name:Alexey Dumont Payer ID:[id number] (NAIC) Type:PPO Address: [place] [phone] [employer] BENEFITS ADMIN[employer] Member Subscriber Plan / Payer (Ef fective 2015-Present) Name:Alexey Dumont Relation to Subscriber:Self Name:Alexey Dumont Payer ID:[id number] (NAIC) Type:PPO Address: [place] [phone] [employer] Care Teams Sql Analyst Relationship Specialty Start Date End Date Pcp, Unknown PCP - General 08/20/21 Additional Source Comments The information contained in this document represents components of the legal health record. It is not the complete legal health record.[facility]
[2024-12-09 08:48] LABS: MANUAL DIFF FLAG NO
[2024-12-09 09:14] LABS: Hematocrit 46.7 % (42.0-52.0); Hemoglobin 16.9 g/dl (14.0-18.0); Imm Gran Abs Auto 0.12 X10*3/uL (0.00-0.03); Imm Gran Pct Auto 1.5 % (0.0-0.4); Lymphocytes Absolute Auto 3.0 X10*3/uL (1.2-4.9); Mean Corpuscular HGB Conc 36.2 g/dl (31.0-36.0); Mean Corpuscular Hemoglobin 30.1 pg (27.0-33.0); Mean Corpuscular Volume 83.2 fL (80.0-98.0); NRBC Abs Auto 0.000 X10*3/uL (0.0-0.012); NRBC Pct Auto 0.0 /100WBC (0.0-0.2); Platelet Count 295 X10*3/uL (160-400); Red Blood Count 5.61 X10*6/uL (4.60-5.80); White Blood Count 7.9 X10*3/uL (4.8-10.8)
[2024-12-09 09:33] LABS: Appearance Urine Clear; Glucose Urine UA Negative (Negative); PH 6.0 (5.0-9.0); Specific Gravity - Urine 1.020 (1.005-1.025); UMIC TRIGGER UACC YES
[2024-12-09 09:47] LABS: Alanine Aminotransferase 62 U/L (0-40); Albumin Level 4.9 g/dL (3.5-5.0); Alkaline Phosphatase 82 U/L (39-117); Anion Gap 12 (12-20); Aspartate Amino Transferase 36 U/L (5-37); Blood Urea Nitrogen 15 mg/dL (9-16); Calcium 9.1 mg/dL (8.4-10.2); Carbon Dioxide 27 mmol/L (22-29); Chloride 107 mmol/L (96-108); Cholesterol 146 mg/dL (<200); Estimated Glomerular Filt Rate > 60; HDL Cholesterol 32 mg/dL (>40); Potassium 4.5 mmol/L (3.3-5.1); Sodium 141 mmol/L (135-145); Total Protein 7.6 g/dL (6.5-8.0); Triglycerides 256 mg/dL (<150)
== END 2024-12-09 08:30 | disposition home or self-care (01) ==
LOC: HO.LAB 08:29
PROVIDERS: PCP Internal Medicine; Visit Provider Internal Medicine
DX: Z00.00 Encounter for general adult medical examination without abnormal findings (principal); D64.9 Anemia, unspecified; E78.00 Pure hypercholesterolemia, unspecified; E55.9 Vitamin D deficiency, unspecified; R10.9 Unspecified abdominal pain; Z12.5 Encounter for screening for malignant neoplasm of prostate
CPT/HCPCS: 36415; 74021; 80053; 80061; 81001; 82306; 84153; 84443; 85025

== ENCOUNTER → 2024-12-09 08:51 | Outpatient (BNV) | payer BC, SELFPAY | PROVIDERS: PCP Internal Medicine; Visit Provider Radiology Diagnostic Radiology | DX: N20.0 Calculus of kidney (principal) | CPT/HCPCS: 74021 ==

== ENCOUNTER 2024-12-11 16:00 | Outpatient (AMB) | payer BC, SELFPAY ==
--- NOTE | 2024-12-11 16:06 | A.OFFPC_ITS ---
Vital Signs 12/11/24 16:08 Height 5 ft 4 in Weight 212 lb 8 oz BMI 36.5 BP 108/66 Blood Pressure Location Lt brachial Position Sitting Pulse 67 Pulse Source Pulse Oximeter Temp 97.3 F Temp Source Temporal Artery Scan Pulse Oximetry (%) 97 Oxygen Delivery Method Room Air Intake Visit Reasons: Ear Irrigation Intake Note: Patient is here to follow up on Ear Irrigation. Leather Production Machine Operator Required: No Monitor Tech: Not Required per policy Accompanied by: Self / Same As Patient Allergies No Known Allergies (No Known Allergies*) Allergy (Verified 12/11/24 16:21) Medication List - Last Reconciled 12/11/24 by Alva Schaffer PA-C carbamide peroxide 6.5% (Debrox) 5 drps otic (ears) BID 10 days cholecalciferol (vitamin D3) 50 mcg PO DAILY 90 days famotidine (Pepcid) 40 mg PO BEDTIME 90 days magnesium oxide (Hill) 500 mg PO DAILY omeprazole 40 mg PO DAILY ondansetron 4 mg PO Q8H PRN sennosides (senna) Take 1 to 2 tablets orally at bedtime PRN; 30 days sucralfate (Carafate) 1 g PO TID 10 days Tobacco use date assessed: 12/11/24 Dental Screening Dental Screen Date: 12/08/24 HPI Ear Irrigation HPI Details 44 year old male coming in [facility] Medical History Vitamin D deficiency Hypertriglyceridemia Migraine Constipation Obesity (BMI 30-39.9) Surgical History Hx of endoscopy History of colonoscopy Family History Father History of high blood pressure Mother Family history of high blood pressure Hx of type 1 diabetes mellitus Social History Housing: House Alcohol intake: never Patient Tobacco Use Status: Never used Tobacco e-Cigarette/Vaping Use: Never Used Second Hand Smoke Exposure: No service: No Current occupational status: employed Cognitive needs: No Hearing needs: No Vision needs: No Questionnaire Thrive Questionnaire Date Thrive assessed: 12/08/24 I am a: Patient What is your living situation today?: I have a steady place to live Within the past 12 months, did the food you bought not last and you didn't have the money to get more?: Sometimes True Within the past 12 months, did you worry whether your food would run out before you got money to buy more?: Sometimes True Do you have trouble paying for medicines?: No Do you have trouble getting transportation to medical appointments?: No Do you have trouble paying your heating and electricity bill?: Yes Do you have trouble taking care of your child, family member or friend?: No Do you have trouble with day-to-day activities such as bathing, preparing meals, shopping, managing finances, etc.?: No Are you currently unemployed and looking for a job?: No Are you interested in more education?: I choose not to answer this question Please select the resources that you would like help with: Food Currently or been in a relationship where the following occur: No concerns reported THRIVE Score: 3 MAUNEL-7 AMB Questionnaire MANUEL-7 Date MANUEL - 7 assessed: 12/08/24 Source: Developed by Drs. Reuben Arango, Yaritza Dia, Tal Hitchcock and colleagues, with an educational milka from [employer]. Review of Systems ENT Details: Ear clogged feeling and decreased hearing bilaterally Physical exam (Primary Care) Vital Signs: Last Vital Signs Temp 97.3 F 12/11/24 16:08 Pulse 67 12/11/24 16:08 BP 108/66 12/11/24 16:08 Pulse Ox 97 12/11/24 16:08 Oxygen Delivery Method Room Air 12/11/24 16:08 BMI result Body Mass Index 36.5 Tobacco/Smoking Status: Tobacco use Status Tobacco use date assessed 12/11/24 12/11/24 16:16 Patient Tobacco Use Status Never used Tobacco 12/11/24 16:16 e-Cigarette/Vaping Use Never Used 12/11/24 16:16 Thrive Assessment: Date of Thrive Assessment Date Thrive assessed 12/08/24 12/11/24 16:16 Currently or been in a relationship where the following occur: No concerns reported Const General: cooperative, healthy appearing, comfortable and no acute distress Orientation/consciousness: patient oriented x3 HENMT Head: Yes normocephalic Ears: hearing grossly normal bilaterally, TM normal on the right and Abnormal EAC present cerumen impaction on the left and excessive cerumen on the right General nose exam: Normal external nose present Resp Effort & Inspection: normal respiratory effort Cardio Rate: regular rate Neuro General: patient oriented x3 Gait exam (Neuro): Normal gait present Psych Affect: normal affect Attitude: cooperative Insight: Good insight present (Psych) Judgement: Good judgement present (Psych) Office Procedures Cerumen Removal From which ear canal was the cerumen removed: bilateral Removal: irrigation and cerumen loop/spoon Notes: patient tolerated procedure well, no complications and ear canal clear [id number] Irrigation/Lavage Coding Level of Care Code Procedure Only Diagnoses Impacted cerumen of both ears H61.23 CPT Codes Office Procedure - CPT: 92545-Qhr Irrigation/Lavage ([id number]) Assessment & Plan Assessment & Plan (1) Impacted cerumen of both ears: Code(s): H61.23 - Impacted cerumen, bilateral Category: Medical Plan: Bilateral ears were cleaned using combination of lighted curette and irrigation. Patient tolerated the procedure well and TMs were visualized as intact with well aerated middle ear spaces without perforation or retraction. Canal is atraumatic and patient left the room without issue. Follow up as needed Plan This note was constructed using voice recognition software. While every effort has been made to ensure accuracy and transmissions systems operator, still areas may have been included sometimes these areas may affect the content or meeting of the given symptoms. Total time spent caring for the patient today was 15 minutes. This includes time spent before the visit reviewing the chart, time spent during the visit, and time spent after the visit and documentation.
[2024-12-11 16:08] VITALS: BP 108/66; PULSE 67; TEMP 36.3; O2SAT 97; BMI 36.5
--- OUTSIDE RECORDS SUMMARY | 2024-12-11 18:05 | XMS_ITS | Clinical Summary ---
Author Organization [facility] Address [address] [address] Phone Care Team Providers Care Assurance Engineer Name Role Phone Pcp, Unknown Primary Care [...] topic Medical Devices Not on file [place] [address] [employer] Member Subscriber Plan / Payer (Ef fective 2015-Present) Name:Alexey Dumont Relation to Subscriber:Self Name:Alexey Dumont Payer ID:[id number] (NAIC) Type:PPO Address: [address] [employer] Member Subscriber Plan / Payer (Ef fective 2015-Present) Name:Alexey Dumont Relation to Subscriber:Self Name:Alexey Dumont Payer ID:[id number] (NAIC) Type:PPO Address: [place] [phone] [employer]EF[employer] Member Subscriber Plan / Payer (Ef fective 2015-Present) Name:Alexey Dumont Relation to Subscriber:Self Name:Alexey Dumont Payer ID:[id number] (NAIC) Type:PPO Address: [place] [phone] [employer] Care Teams Assurance Engineer Relationship Specialty Start Date End Date Pcp, Unknown PCP - General 08/20/21 Additional Source Comments The information contained in this document represents components of the legal health record. It is not the complete legal health record.[facility]
== END 2024-12-11 16:53 | disposition home or self-care (01) ==
LOC: HO.HMCH 16:01
PROVIDERS: PCP Internal Medicine
DX: H61.23 Impacted cerumen, bilateral (principal)

== ENCOUNTER → 2024-12-11 16:00 | Outpatient (BNVA) | payer BC, SELFPAY | PROVIDERS: PCP Internal Medicine | DX: H61.23 Impacted cerumen, bilateral (principal) | CPT/HCPCS: 69210 ==

== ENCOUNTER 2025-01-04 08:54 | Emergency (ER) | payer BC, SELFPAY ==
--- NOTE | ~2025-01-04 | CT_ITS ---
EXAMINATION: CT ABDOMEN PELVIS WITH IV CONTRAST HISTORY: TTP RLQ and periumbilical rule out appy/ colitis COMPARISON: Comparison is made with the prior examination dated 12/17/2023. TECHNIQUE: CT scan of the abdomen and pelvis was performed following administration of 85 mL Omnipaque 350 using standard departmental protocol. Coronal and sagittal reformatted images were generated and reviewed. Oral contrast material was not administered at the request of the referring physician. This CT exam was performed with one or more of the following dose reduction techniques: automated exposure control, adjustment of the mA and/or kV according to patient size, use of iterative reconstruction technique. DLP: 62 mGy-cm FINDINGS: LOWER CHEST: There is mild subsegmental atelectasis at both lung bases. There is no pleural effusion. CARDIOVASCULATURE: The heart is normal in size. There is no pericardial effusion. LIVER: The liver is normal in size and contour. No liver mass is identified. The hepatic and portal veins are patent. GALLBLADDER / BILE DUCTS: The gallbladder is unremarkable. There is no intra or extrahepatic biliary ductal dilatation. SPLEEN: The spleen is normal in size. No focal splenic lesion is identified. PANCREAS: The pancreas is unremarkable in appearance. ADRENAL GLANDS: Within normal limits. KIDNEYS/RETROPERITONEUM: There are multiple tiny 1-2 mm nonobstructing calculi in the interpolar region and at the lower pole of the right kidney. There is a punctate nonobstructing calculus in the interpolar region of the left kidney and a 4 mm nonobstructing calculus at the lower pole. There is mild right hydronephrosis and hydroureter to the level of a 4 mm UVJ calculus. There is a probable subcentimeter cyst at the lower pole of the right kidney. LYMPH NODES: No abdominal or pelvic lymphadenopathy. VASCULATURE: The abdominal aorta is normal in caliber. MESENTERY/PERITONEUM: No free fluid. No masses. There is no free intraperitoneal gas. STOMACH: The stomach is collapsed, limiting evaluation. SMALL BOWEL: The small bowel is normal in caliber. COLON: The colon is unremarkable. APPENDIX: Normal. URINARY BLADDER/PELVIC ORGANS: The urinary bladder is unremarkable. The prostate is normal in size. BONES / SOFT TISSUES: No suspicious bony or soft tissue abnormalities. CT/CT abdomen pelvis w IV con IMPRESSION: 1. Mild right hydroureteronephrosis to the level of a 4 mm UVJ calculus. 2. Bilateral nephrolithiasis as described. 3. A normal appendix is visualized. Electronically signed by: Reuben Miranda MD 01/04/2025 10:52 AM EDT
[2025-01-04 08:57] VITALS: BP 171/94; PULSE 68; RESP 18; TEMP 36.5; O2SAT 98; BMI 35.3
--- NOTE | 2025-01-04 09:10 | ED_ITS ---
HPI - Abdominal Pain General Chief Complaint: Abdominal Pain Stated Complaint: abd pain Time Seen by Provider: 01/04/25 09:03 Source: patient Mode of arrival: ambulatory Limitations: no limitations History of Present Illness ED Provider: Lisa Cardona PA-C HPI narrative: Patient presents to the emergency department today for evaluation of abdominal discomfort. He reports a sudden onset around 08:10 this morning and proximally an hour prior to arrival. He reports getting sensation in his lower abdomen of urgent need to go to the bathroom as it was a cramping sharp like feeling and did go to the bathroom which he reports as a normal bowel movement but did pain intensified after that. He reports it did not cause pain to move the bowel from his rectum and did not notice any blood in his stool. He has also felt quite nauseous but no vomiting. He reports no prior history of this and next to his kidney stone which hurt way more than this 15 years ago the search just slightly less. Hurts more when he does abdominal wall current sensation feels better when he extends his abdomen. He denies any radiation is without any back pain falls or trauma no paresthesias weakness or pain in the limbs. He is denying any chest pain or respiratory symptoms no shortness of breath. He is denying any symptoms and no flank pain. Other than a coffee he has not had anything to eat today. His last meal was cereal with milk last night family members had similar food and no symptoms. No prior abdominal surgeries. Rates 12/22 pain. MD elicited complaint: abdominal pain Related Data Home Medications ?Medication ?Instructions ?Recorded ?Confirmed magnesium oxide (Hill) 500 mg PO DAILY 07/26/20 Previous Rx's ?Medication ?Instructions ?Recorded ondansetron 4 mg disintegrating 4 mg PO Q8H PRN nausea and 02/03/20 tablet vomiting #20 tabs sucralfate 1 gram tablet (Carafate) 1 g PO TID 10 days #30 tabs 02/03/20 omeprazole 40 mg capsule,delayed 40 mg PO DAILY #30 ca ps 03/02/22 release sennosides 8.6 mg tablet (senna) See Rx Instructions P O BEDTIME PRN 08/31/22 constipation 30 days #30 tabs carbamide peroxide 6.5 % ear drops 5 drp otic (ears) B ID 10 days #15 12/08/24 (Debrox) mL cholecalciferol (vitamin D3) 50 50 mcg PO DAILY 90 day s #90 caps 12/08/24 mcg (2,000 unit) capsule famotidine 40 mg tablet (Pepcid) 40 mg PO BEDTIME 90 d ays #90 tabs 12/08/24 acetaminophen 300 mg-codeine 30 mg 1 tab PO Q8H PRN se fredrick pain 01/04/25 tablet (scale score 7-10) #10 tabs ondansetron 4 mg disintegrating 4 mg PO Q8H PRN nausea and 01/04/25 tablet vomiting #10 tabs tamsulosin 0.4 mg capsule (Flomax) 0.4 mg PO DAILY #7 caps 01/04/25 Allergies Allergy/AdvReac Type Severity Reaction Status Date / Time No Known Allergies (No Known Allergy Verified 01/04/25 08:59 Allergies*) Review of Systems Review of Systems Yes all other systems are reviewed and are negative PMFSH Past Medical History Attestation statement: The following information was validated with the patient. Source: old records reviewed, obtained from family and nursing notes reviewed Medical History Vitamin D deficiency Hypertriglyceridemia Migraine Constipation Obesity (BMI 30-39.9) Surgical History Hx of endoscopy History of colonoscopy Family History Family History Father History of high blood pressure Mother Family history of high blood pressure Hx of type 1 diabetes mellitus Social History Social History Housing: House Alcohol intake: never Patient Tobacco Use Status: Never used Tobacco e-Cigarette/Vaping Use: Never Used Second Hand Smoke Exposure: No Advance Directives: No Advance Directives Information Provided: No service: No Current occupational status: employed Cognitive needs: No Hearing needs: No Vision needs: No Physical Exam ED Exam Exam: General: Appears in no acute distress, appears well nourished body habitus is obese, appears stated age. No septic or ill-appearing. Vitals reviewed normal, PMH/Social and Surgical hx reviewed including allergies and current medications. - reviewed for prior visits here and read as it pertains to gastritits dx in 2020. Spouse at bedside Head: Normocephalic, no obvious trauma or skin lesions noted. Eyes: EOMI no scleral icterus ENMT: dry oral mucosa uvula is midline no trismus Neck: trachea midline no lymphadenopathy Cardiovascular: peripheral perfusion normal, Regular heart rate, regular rate Respiratory: no respiratory distress, lungs clear no flail chest no tachypnea Abdomen: Obese abdomen with guarding of the periumbilical and right lower quadrant, no rebound, negative Lockhart's no [place] sign, no umbilical hernias, no rashes and no CVA tenderness or flank pain Extremities: warm and moving without difficulty. Psych: Cooperative and calm Neuro: Alert and oriented. Vital Signs: Vital Signs - 24 hr 01/04/25 08:57 01/04/25 10:00 Temperature 97.7 F Pulse Rate 68 68 Respiratory Rate 18 20 Blood Pressure 171/94 H 158/84 H Pulse Oximetry 98 96 Oxygen Delivery Method Room Air Room Air BMI result Body Mass Index 35.3 Medical Decision Making Medical Decision Making MDM Narrative: Well-appearing 44-year-old male with past medical history significant for gastritis without any current EtOH use presenting to the emergency department today for lower abdominal quadrant pain concentrated in the right lower quadrant and periumbilical area. Sudden onset this morning worse after a bowel movement. He does not appear septic or toxic. He is noted to be hypertensive at 171/94 likely secondary to pain no history of hypertension or DM. He is not tachycardic or tachypneic. Afebrile saturating 98% on room air appearing in no acute respiratory distress. Given that he appears mildly dehydrated on exam with the acute tender abdomen in have ordered 1 L of IV fluids along with Zofran 0.5 mg of Dilaudid secondary to morphine shortage as well as a CT abdomen and pelvis with contrast to rule out potential appendicitis versus colitis. No symptoms but we will collect a UA for potential UTI. This does not appear to be consistent with SBO or with SBP. Abdominal labs ordered will update plan as needed. 1023: NO leukocytosis or anemia noted. No CASEY, mild AST/ ALT elevation 42/76 (baseline values since 2022) no biliary or pancreatic disease noted, no electrolyte imbalance. UA with a small amout of blood otherwise nromal. CT abd pelvis pending (prior available for comparison. Pain controlled at bedside no clinical changes. 1111: CT scan without appy but does show mild right hydroureteronephrosis to the level of a 4 mm UVJ calculus, this does clinically coordinate with his hematuria. Pain is controlled, no UTI, or leukocytosis. WIll give flomax, pain control and have follow up with outpatient urology. Spoke to patient in regards to this. He agrees to try outpatient management and will return to the ED for worsening symptoms. Differential Diagnosis Differential Diagnoses: The differential diagnosis associated with the presentation includes colitis / appendicitis UTI kidney stone gastroenteritis hernia Admission/Observation Consideration of admission/observation: Escalation of care including admission/observation considered Patient would have been admitted to the hospital had his work up had any findings where hospital admission was appropriate and his clinical presentation warranted hospital admission. Lab Data MDM Lab Attestation statement: I reviewed the patient's lab results. 01/04/25 09:25 01/04/25 09:28 Labs: Lab Results 01/04/25 01/04/25 Range/Units 09:25 09:28 WBC 7.6 (4.8-10.8) X10*3/uL RBC 5.69 (4.60-5.80) X10*6/uL Hgb 16.9 (14.0-18.0) g/dl Hct 47.9 (42.0-52.0) % MCV 84.2 (80.0-98.0) fL MCH 29.7 (27.0-33.0) pg MCHC 35.3 (31.0-36.0) g/dl RDW 11.8 (11.0-16.0) % Plt Count 289 (160-400) X10*3/uL MPV 8.8 L (9.4-12.4) fL Immature Gran % (Auto) 1.6 H (0.0-0.4) % Neut % (Auto) 52.9 (45-73) % Lymph % (Auto) 26.9 (20-40) % [place] % (Auto) 14.0 H (2-11) % Eos % (Auto) 3.9 (0-4) % Baso % (Auto) 0.7 (0-2) % Lymph # (Auto) 2.1 (1.2-4.9) X10*3/uL [place] # (Auto) 1.1 (0.1-1.2) X10*3/uL Eos # (Auto) 0.3 (0.0-0.4) X10*3/uL Baso # (Auto) 0.1 (0.0-0.2) X10*3/uL Abs Immat Gran (auto) 0.12 H (0.00-0.03) X10*3/uL Absolute Neuts (auto) 4.0 (2.0-8.3) x10*3/uL Absolute Nucleated RBC 0.000 (0.0-0.012) X10*3/uL Nucleated RBC % (auto) 0.0 (0.0-0.2) /100WBC Sodium 140 (135-145) mmol/L Potassium 4.2 (3.3-5.1) mmol/L Chloride 106 (96-108) mmol/L Carbon Dioxide 23 (22-29) mmol/L Anion Gap 15 (12-20) BUN 13 (9-16) mg/dL Creatinine 1.09 (0.5-1.4) mg/dL Estim Creat Clear Calc 87.2 Estimated GFR > 60 Random Glucose 104 (60-115) mg/dL Calcium 9.5 (8.4-10.2) mg/dL Magnesium 2.2 (1.6-2.6) mg/dL Total Bilirubin 0.6 (0.0-1.0) mg/dL AST 42 H (5-37) U/L ALT 76 H (0-40) U/L Alkaline Phosphatase 92 (39-117) U/L Total Protein 7.7 (6.5-8.0) g/dL Albumin 4.9 (3.5-5.0) g/dL Lipase 19 (8-78) U/L Urine Color Yellow Urine Appearance Clear Urine pH 5.5 (5.0-9.0) Ur Specific [place] 1.020 (1.005-1.025) Urine Protein Trace (Neg-Trace) mg/dL Urine Glucose (UA) Negative (Negative) mg/dL Urine Ketones Negative (Negative) mg/dL Urine Blood Small (1+) H (Negative) Urine Nitrite Negative (Negative) Ur Leukocyte Esterase Negative (Negative) Urine RBC >20 H (0-2) /HPF Urine WBC 0-5 (0-5) /HPF Ur Squamous Epith Cells 0-2 (0-2) /HPF Urine Bacteria None Seen (None Seen) Hyaline Casts 0-2 (0-2) /LPF Independent Interpretation I performed an independent interpretation of an: CT Scan Interpretation: No appy or diverticulitis, possible stone right UVJ Radiology Impression Discussion of test interpretation with radiology: I have reviewed the radiologist's reading. Radiologist Impression: Mild right hydroureteronephrosis to the level of a 4 mm UVJ calculus Independent Historian Clinical information obtained from an independent historian. History obtained from or confirmed by: Spouse Prescription Management I considered prescription management with: Pain Medication and Antibiotic NO UTI, abx not indicated Chronic Conditions Patient?s care impacted by: Other Social Determinants Patient?s care significantly limited by Social Determinants of Health including: Other Social Determinant of Health Medications Administered Discontinued Medications Generic Name Dose Route Start Last Admin Trade Name Freq PRN Reason Stop Dose Admin Hydromorphone HCl 0.5 mg 01/04/25 09:17 01/04/25 09:28 Hydromorphone Hcl 0.5 Mg/0.5 Ml Syringe IVPUSH 01/04/25 09:18 0.5 mg ONCE ONE Administration Protocol Sodium Chloride 1,000 mls @ 999 mls/hr 01/04/25 09:17 01/04/25 11:01 Ns IV 01/04/25 10:17 Infused .Q1H1M ONE Infusion Iohexol 100 ml 01/04/25 10:44 01/04/25 10:44 Iohexol 350 Mg/Ml 100 Ml Infus..Btl IV 01/04/25 10:45 85 ml ONCE ONE Administration Ondansetron HCl 4 mg 01/04/25 09:17 01/04/25 09:28 Ondansetron Hcl 4 Mg/2 Ml Vial IVPUSH 01/04/25 09:18 4 mg ONCE ONE Administration Critical Care Time Critical Care Time Critical Care Time: Yes Total Critical Care Time: 30 Attestation: This patient required critical care. Due to the fact that the patient required a significant amount of one on one physician ? patient contact time, ordering and review of studies, arranging urgent treatment with development of a management plan, evaluation of patient?s response to treatment with frequent reassessments, and discussions with other providers this patient required critical care time in excess of 30 minutes. Critical care time was indicated due to the inherent instability and/or potential for instability in this patient. The critical care time that is allocated to this patient is above and beyond any time spent on any other billable procedures performed on this patient. Discharge Plan Discharge Clinical Impression: Right ureteral calculus, Bilateral nephrolithiasis Abdominal pain Qualifiers: Abdominal location: right lower quadrant Qualified Code(s): R10.31 - Right lower quadrant pain Patient Disposition: Home, Self-Care Instructions: Ureteral Stones (ED) Additional Instructions: You were seen and evaluated in the ER for your flank pain. You had blood work and a urine test done. Your CT Scan demonstrated you have a ureteral stone. You should take Ibuprofen 600mg orally every 6 hours for pain. Take this medication with food, as it can cause stomach irritation.? Take the oxycodone as needed for severe pain. Do not drink alcohol or drive while taking this medication. Take this medication as prescribed, as this can be an addictive medication.? Use the zofran as needed for nausea/vomiting. Drink plenty of fluids. Strain your urine as shown. Follow up with the Urologist. If you develop any uncontrolled or worsening pain, fevers, intractable vomiting, or any other new, concerning symptoms please return to the ER immediately Prescriptions: New tamsulosin [Flomax] 0.4 mg capsule 0.4 mg PO DAILY Qty: 7 0RF acetaminophen-codeine 300-30 mg tablet 1 tab PO Q8H PRN (Reason: severe pain (scale score 7-10)) Qty: 10 0RF ondansetron 4 mg tablet,disintegrating 4 mg PO Q8H PRN (Reason: nausea and vomiting) Qty: 10 0RF No Action ondansetron 4 mg tablet,disintegrating 4 mg PO Q8H PRN (Reason: nausea and vomiting) Qty: 20 0RF sucralfate [Carafate] 1 gram tablet 1 g PO TID 10 Days Qty: 30 0RF magnesium oxide [Hill] 500 mg tablet 500 mg PO DAILY omeprazole 40 mg capsule,delayed release(DR/EC) 40 mg PO DAILY Qty: 30 2RF sennosides [senna] 8.6 mg tablet See Rx Instructions PO BEDTIME PRN (Reason: constipation) 30 Days Qty: 30 3RF Rx Instructions: Take 1 to 2 tablets orally at bedtime PRN; Debrox 6.5 % drops 5 drp otic (ears) BID 10 Days Qty: 15 0RF cholecalciferol (vitamin D3) 50 mcg (2,000 unit) capsule 50 mcg PO DAILY 90 Days Qty: 90 3RF famotidine [Pepcid] 40 mg tablet 40 mg PO BEDTIME 90 Days Qty: 90 1RF Referrals: [facility] [Provider Group, Urology] Referral Note: IMPRESSION: 1. Mild right hydroureteronephrosis to the level of a 4 mm UVJ calculus. 2. Bilateral nephrolithiasis as described. 3. A normal appendix is visualized. Clinical Impression: Right ureteral calculus Carlos Polk MD [Primary Care Provider, Internal Medicine] Referral Note: ED follow up Clinical Impression: Right ureteral calculus Stand Alone Forms: Work/School Release Print Language: Tamazight
[2025-01-04 09:34] LABS: MANUAL DIFF FLAG NO
[2025-01-04 09:37] LABS: Appearance Urine Clear; Glucose Urine UA Negative (Negative); PH 5.5 (5.0-9.0); Specific Gravity - Urine 1.020 (1.005-1.025); UMIC TRIGGER UACC YES
[2025-01-04 09:37] LABS: Hematocrit 47.9 % (42.0-52.0); Hemoglobin 16.9 g/dl (14.0-18.0); Imm Gran Abs Auto 0.12 X10*3/uL (0.00-0.03); Imm Gran Pct Auto 1.6 % (0.0-0.4); Lymphocytes Absolute Auto 2.1 X10*3/uL (1.2-4.9); Mean Corpuscular HGB Conc 35.3 g/dl (31.0-36.0); Mean Corpuscular Hemoglobin 29.7 pg (27.0-33.0); Mean Corpuscular Volume 84.2 fL (80.0-98.0); NRBC Abs Auto 0.000 X10*3/uL (0.0-0.012); NRBC Pct Auto 0.0 /100WBC (0.0-0.2); Platelet Count 289 X10*3/uL (160-400); Red Blood Count 5.69 X10*6/uL (4.60-5.80); White Blood Count 7.6 X10*3/uL (4.8-10.8)
[2025-01-04 09:55] LABS: Alanine Aminotransferase 76 U/L (0-40); Albumin Level 4.9 g/dL (3.5-5.0); Alkaline Phosphatase 92 U/L (39-117); Anion Gap 15 (12-20); Aspartate Amino Transferase 42 U/L (5-37); Blood Urea Nitrogen 13 mg/dL (9-16); Calcium 9.5 mg/dL (8.4-10.2); Carbon Dioxide 23 mmol/L (22-29); Chloride 106 mmol/L (96-108); Creatinine Clr Calc Pharmacy 87.2; Estimated Glomerular Filt Rate > 60; Lipase 19 U/L (8-78); Magnesium 2.2 mg/dL (1.6-2.6); Potassium 4.2 mmol/L (3.3-5.1); Sodium 140 mmol/L (135-145); Total Protein 7.7 g/dL (6.5-8.0)
[2025-01-04 10:00] VITALS: BP 158/84; PULSE 68; RESP 20; O2SAT 96
--- OUTSIDE RECORDS SUMMARY | 2025-01-04 10:22 | XMS_ITS | Clinical Summary ---
Author Organization [facility] Address [address] [address] Phone Care Team Providers Care Gasser Machine Operator Name Role Phone Pcp, Unknown Primary Care [...] VACCINE (#1) 2024 COVID-19 VACCINE ( - 2024-2 6 season) 2024 SMOKING STATUS SCREENING (On ce [...] topic Medical Devices Not on [place] [address] [address] [email or web address] Member Subscriber Plan / Payer (Ef fective 2015-Present) Name:Alexey Dumont Relation to Subscriber:Self Name:Alexey Dumont Payer ID:[id number] (NAIC) Type:PPO Address: [address] [employer] Member Subscriber Plan / Payer (Ef fective 2015-Present) Name:Alexey Dumont Relation to Subscriber:Self Name:Alexey Dumont Payer ID:[id number] (NAIC) Type:PPO Address: [place] [phone] [employer] Member Subscriber Plan / Payer (Ef fective 2015-Present) Name:Alexey Dumont Relation to Subscriber:Self Name:Alexey Dumont Payer ID:[id number] (NAIC) Type:PPO Address: [place] [phone] [employer] Care Teams Gasser Machine Operator Relationship Specialty Start Date End Date Pcp, Unknown PCP - General 08/20/21 Additional Source Comments The information contained in this document represents components of the legal health record. It is not the complete legal health record.[facility]
[2025-01-04] MEDS: iohexoL 350 MG/ML 100 ML INFUS..BTL IV (10:44)
[2025-01-04 11:34] VITALS: BP 119/73; PULSE 63; RESP 15; TEMP 36.6; O2SAT 98
== END 2025-01-04 11:43 | disposition home or self-care (01) ==
PROVIDERS: Physician Assistant Medical; Emergency Provider Emergency Medicine; PCP Internal Medicine
DX: N20.2 Calculus of kidney with calculus of ureter (principal); R10.31 Right lower quadrant pain; R10.33 Periumbilical pain; Z79.899 Other long term (current) drug therapy
CPT/HCPCS: 36415; 74177; 80053; 81001; 83690; 83735; 85025; 86141; 96361; 96374; 96375; 99284; 99285; J1171; J2405; Q9967

== ENCOUNTER → 2025-01-04 09:17 | Outpatient (BNV) | payer BC, SELFPAY | PROVIDERS: Emergency Provider Emergency Medicine; PCP Internal Medicine; Visit Provider Radiology Diagnostic Radiology | DX: N13.2 Hydronephrosis with renal and ureteral calculous obstruction (principal) | CPT/HCPCS: 74177 ==